=== PATIENT | female | born 1980 | race Caucasian/White ===

== ENCOUNTER 2018-01-12 08:40 | Outpatient (REF) | payer OTHER, SELFPAY ==
--- NOTE | 2018-01-12 08:30 | PAPFT_PTH ---
PATIENT: Molly Esparza LOC: [facility] U#:[id number] AGE/SX: 37/F ROOM: RE01/12/[address]: MURALI Vaca : 1980 BED: DIS: 01/12/2018 SPEC #: [id number] RECD: 01/12/18 13:09 STATUS: RUMA RESonya #: [id number] LORY: 01/12/18 08:[address]: Parul Acevedo DEPT: [facility] Cytology RECD BY: Lilliana Ventura ENTERED: 01/12/18 13:09 SP TYPE: PAPFT OTHR DR: Peter Bernard MD Tissues: 1 - CX/ENDOCX FOR PAP SMEARS Procedures: PAP THIN PREP/UVM Screening HPV DNA PROBE Comments: [id number]
== END 2018-01-12 09:00 ==
LOC: LBN 08:40
PROVIDERS: PCP Family Medicine; Visit Provider Nurse Practitioner Family
DX: Z12.4 Encounter for screening for malignant neoplasm of cervix (principal); Z11.51 Encounter for screening for human papillomavirus (HPV)
CPT/HCPCS: 88142; 87624

== ENCOUNTER 2018-02-16 01:49 | Outpatient (CLI) | payer OTHER, SELFPAY ==
[2018-02-16 13:40] LABS: TSH (W/Ref FT4) 2.42 uIU/mL (0.358-3.74)
== END 2018-02-16 02:09 ==
PROVIDERS: PCP Family Medicine; Visit Provider Nurse Practitioner Family
DX: R53.83 Other fatigue (principal)
CPT/HCPCS: 36415; 84443

== ENCOUNTER 2018-04-03 00:27 | Outpatient (CLI) | payer OTHER, SELFPAY ==
--- NOTE | 2018-04-03 12:00 | DI.US_ITS ---
SYMPTOMS/DIAGNOSIS: PAIN AND SWELLING IN LEFT LEG, M79.605 LEFT LOWER EXTREMITY ULTRASOUND: The femoral and popliteal veins and visualized portions of the calf veins as well as saphenous vein are freely compressible. No thrombus is visible. No Castano's cyst or hematoma is seen. IMPRESSION: Negative left lower extremity ultrasound. No evidence of deep venous thrombosis or superficial thrombophlebitis.
== END 2018-04-03 00:47 ==
PROVIDERS: PCP Family Medicine; Visit Provider Family Medicine
DX: M79.605 Pain in left leg (principal); R22.42 Localized swelling, mass and lump, left lower limb
CPT/HCPCS: 93971

== ENCOUNTER 2018-05-28 02:19 | Outpatient (CLI) | payer OTHER, SELFPAY ==
[2018-05-28 07:52] LABS: HCT 41.1 % (36.0-46.0); HGB 13.8 g/dL (12.0-15.5); Mean Corp. HGB Concentration 33.6 g/dL (32.0-36.0); Mean Corpuscular Hemoglobin 29.7 pg (27.0-33.0); Mean Corpuscular Volume 88.4 fL (80-95); Mean Platelet Volume 10.1 fL (8.0-11.0); Platelet Count 220 x1000/uL (130-400); RBC 4.65 m/cumm (4.00-5.20); RBC Distribution Width 12.8 % (11.7-14.6); White Blood Cell Count 5.65 k/cumm (4.4-10.8)
[2018-05-28 09:28] LABS: ALT 21 U/L (12-78); AST 14 U/L (15-37); Albumin 4.1 g/dL (3.4-5.0); Alkaline Phosphatase 66 U/L (46-116); Anion Gap 6.1 mmol/L (3-11); BUN 12 mg/dL (7-18); Bilirubin, Total 0.8 mg/dL (0.2-1.0); CO2 28.9 mmol/L (21.0-32.0); CREATININE 0.82 mg/dL (0.55-1.02); Calcium 9.1 mg/dL (8.5-10.1); Chloride 105 mmol/L (98-107); Glucose 90 mg/dL (70-100); Potassium 4.6 mmol/L (3.5-5.1); Sodium 140 mmol/L (136-145); Total Protein 7.3 g/dL (6.4-8.2); Vitamin B12 436 pg/mL (193-986)
== END 2018-05-28 02:39 ==
PROVIDERS: PCP Family Medicine; Visit Provider Family Medicine
DX: R20.2 Paresthesia of skin (principal)
CPT/HCPCS: 36415; 80053; 85027; 82607

== ENCOUNTER 2018-10-04 18:14 | Emergency (ER) | payer OTHER, SELFPAY ==
--- NOTE | 2018-10-04 18:25 | ED.GENADUL_ITS ---
Discharge Plan Disposition Patient Disposition: HOME Condition: Good Discharge Details Chief Complaint: Sorethroat Clinical Impression: Acute sore throat Primary Care Provider: Peter Bernard ED Provider: Diego Farrar Home Meds and New Rx's Prescriptions: New amoxicillin 500 mg capsule 1,000 mg PO DAILY 7 Days Qty: 14 RF: 0 Continued lorazepam 0.5 mg tablet 0.5 mg PO Q6H PRN PRN (Reason: anxiety) Qty: 30 RF: 0 Discontinued amoxicillin-pot clavulanate 500-125 mg tablet 1 tab PO TID Qty: 30 RF: 0 meclizine 12.5 mg tablet 12.5 mg PO TID PRN (Reason: dizziness) Qty: 30 RF: 3 Discharge Instructions Instructions: Pharyngitis (ED) Additional Instructions: At this time you have notable pharyngitis. If your cultures come back positive he will be contacted. Please take the antibiotic if it is positive. Please take Tylenol Motrin as needed for pain and fever. If you notice any worsening of your symptoms, or any new symptoms such as vomiting, diarrhea, fever, chills, shortness of breath, chest pain, numbness, weakness, or fainting , please return immediately to the emergency department for reevaluation. Please follow up with your primary care provider as soon as possible for reassessment and reevaluation. As always, it was a pleasure participating in your medical care today. 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 She has some mild fatigue with it, no evidence of significant splenomegaly, inconsistent with mono. Bedside strep test is negative, however historically the patient has been strep [id number] negative, but culture positive. With no signs of peritonsillar abscess or other significant abnormality feel the patient be safely discharged home. Due to her historical component we will give a prescription for antibiotics, but recommend holding off until the cultures come back. We discussed the importance of Tylenol Motrin close follow-up. Patient does have mild fever here, we offered Tylenol Motrin however she would like to take some at home. I have extensively reviewed the treatment plan and discharge instructions with the patient. I have addressed all patient concerns at this time. The patient was made aware of what symptoms to monitor for that would warrant a return to the emergency department. Discussed the plan with the patient, they demonstrate verbal understanding and agreement with our assessment and plan at this time. HPI General Date/Time Provider Initiated Documentation: 10/04/18 18:18 . 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 Patient states that for the last 24 hours she has had mild fatigue, notable sore throat. She states that it feels consistent with her previous episodes of sore throat. Often times she will be strep negative on [id number] but then be strep positive on culture. She denies any headache, neck pain, fever, chills, chest pain, shortness of breath. She denies any nausea vomiting or diarrhea. She did recently get back from a trip to [facility], but denies any other significant travel or other complaints. She denies any IV or illicit drug use, pertinent family history, or recent surgeries. Related Data Home Medications Medication Instructions Recorded Confirmed lorazepam 0.5 mg tablet 0.5 mg PO Q6H PRN PRN #30 tab 12/11/17 06/09/18 amoxicillin 1,000 mg PO DAILY 7 Days #14 cap 10/04/18 Previous Rx's Medication Instructions Recorded lorazepam 0.5 mg tablet 0.5 mg PO Q6H PRN PRN #30 tab 12/11/17 amoxicillin 1,000 mg PO DAILY 7 Days #14 cap 10/04/18 Allergies Allergy/AdvReac Type Severity Reaction Status Date / Time doxycycline Allergy Mild Verified 10/04/18 18:37 erythromycin base AdvReac Unknown Verified 10/04/18 18:37 Review of Systems Review of Systems All systems reviewed & are unremarkable except as noted in HPI and below PFSH Medical History (Updated 06/08/18 @ 19:55 by Peter Bernard MD) Esophageal reflux (Chronic) Family history of colon cancer (Chronic 04/12/13) IUD surveillance (Chronic 02/01/11) Obesity (Chronic) Surgical History section (~2003) Ligation of fallopian tube (Inactive) Social History (Updated 01/08/18 @ 09:03 by Yojana Phelps LPN) Smoking/Tobacco Use Status: Never Alcohol Intake: never Drug use: Never Substance use type: does not use Seatbelt use: always Do you feel safe at home: Yes Do you feel safe in your relationship?: Yes Female Reproductive History Menstrual control method: progestin IUCD (No menses with IUD) Exam Narrative Exam Narrative: 1.Const: Well-nourished, Well-developed, appearing stated age 2.Eyes: PERRL, no conjunctival injection, and symmetrical lids. 3.ENT: Atraumatic external nose and ears. Moist MM. Neck: Symmetric, trachea midline, No thyromegaly. Notable erythema in the posterior oropharynx. No significant tonsillar exudate, tonsils are not overly enlarged, but do appear raw and notably agitate. Patient demonstrates good movement of cervical neck. There is no nuchal rigidity, no nuchal tenderness. Patient is able to flex the neck without any difficulty or significant pain. Negative Kernig's and Brudzinski sign. 4.CVS: +S1/S2, No murmurs or gallops. Peripheral pulses 2+ and equal in all extremities. Brisk capillary refill in all extremities. 5.RESP: Unlabored respiratory effort. Clear to auscultation bilaterally. No wheezes rales or rhonchi 6.GI: Soft, Nontender/Nondistended, No hepatosplenomegaly. No guarding or rebound. 7.MSK: Normocephalic/Atraumatic, Extremities w/o deformity or ttp No cyanosis or clubbing, Normal movement of all extremities 8.Skin: Warm, Dry. No rashes or lesions. 9.Neuro: crushed stone grader II-XII grossly intact. Sensation grossly intact, no focal neurologic deficits. 10.Psych: (AAO) x3. Appropriate mood and affect
[2018-10-04 18:32] VITALS: BP 141/98; PULSE 116; RESP 18; TEMP 38.4; O2SAT 100
[2018-10-04] MEDS: Amoxicillin 500 MG CAP 1000 MG PO (18:46)
== END 2018-10-04 18:50 | disposition home or self-care (01) ==
PROVIDERS: Emergency Provider Student in an Organized Health Care Education/Training Program; PCP Family Medicine
DX: J02.9 Acute pharyngitis, unspecified (principal); R50.9 Fever, unspecified
CPT/HCPCS: 87880; 99283; 87081

== ENCOUNTER 2019-03-04 00:35 | Outpatient (CLI) | payer OTHER, SELFPAY ==
--- NOTE | 2019-03-04 08:16 | DI.MAMMO_ITS ---
EXAM: MG MAMMO SCREENING CLINICAL HISTORY: screening. TECHNIQUE: Full field digital CC and MLO mammographic images were obtained with 3D tomosynthesis and utilizing computer aided detection (CAD). COMPARISON: 2017. FINDINGS: Breast Density - Category C - Heterogeneously dense Masses/Architectural Distortion: None seen. Microcalcifications: No suspicious pleomorphic-type calcifications are seen. Skin Thickening/Nipple Retraction: None. Axilla: Unremarkable. IMPRESSION: 1. BI-RADS category 1, negative. No significant interval change with no specific features of maligna ncy noted. 2. Unless there is more urgent need, screening mammography is recommended, as per [employer] guidelines. A negative radiographic report should not delay biopsy if a dominant or clinically suspicious mass is present. Up to ten percent of cancers are not identified on mammography. A negative report may reinforce clinical impression. Adenosis and dense breasts may obscure an underlying neoplasm. False positive reports average 6 to 10%. Patient will receive a letter notifying them of these results.
== END 2019-03-04 00:55 ==
PROVIDERS: PCP Family Medicine; Visit Provider Nurse Practitioner Family
DX: Z12.31 Encounter for screening mammogram for malignant neoplasm of breast (principal)
CPT/HCPCS: 77063; 77067

== ENCOUNTER 2020-03-13 00:27 | Outpatient (CLI) | payer OTHER, SELFPAY ==
--- NOTE | 2020-03-13 07:30 | DI.MAMMO_ITS ---
EXAM: MG MAMMO SCREENING CLINICAL HISTORY: screening TECHNIQUE: Bilateral full field digital CC and MLO mammographic images were obtained with 3D tomosyn thesis and utilizing computer aided detection (CAD). COMPARISON: Available for comparison. FINDINGS: Masses/Architectural Distortion: There is a new ovoid opacity in the medial aspect of the left breast on the craniocaudad view 13 cm from the nipple. It appears fairly well circumscribed on the tomogra phic images. Microcalcifications: No suspicious pleomorphic-type are seen. Skin Thickening/Nipple Retraction: None. IMPRESSION: 1. New ovoid opacity in the medial aspect of the left breast on the CC view. 2. Spot compression views and a left breast ultrasound are recommended for further evaluation. BI-RADS Category 0 - Assessment Incomplete: Need additional imaging evaluation Breast Density - Category C - Heterogeneously dense Breast density category C or D implies that the patient has dense breast tissue. Dense breast tissue is very common and is not abnormal but dense breast tissue can make it harder to find cancer on a ma mmogram. Also, dense breast tissue may increase their breast cancer risk. This information about the result of the mammogram report was provided to the patient to raise their awareness. Use this report when you speak with the patient about their risks for breast cancer, which includes their family hist ory. At that time, you may recommend for more screening tests (Ultrasound or MRI) as they might be us eful based on their risk. A negative radiographic report should not delay biopsy if a dominant or clinically suspicious mass is present. Up to ten percent of cancers are not identified on mammography. A negative report may reinforce clinical impression. Adenosis and dense breasts may obscure an underlying neoplasm. False positive reports average 6 to 10%. Patient will receive a letter notifying them of these results.
== END 2020-03-13 00:47 ==
PROVIDERS: PCP Nurse Practitioner; Visit Provider Nurse Practitioner Family
DX: Z12.31 Encounter for screening mammogram for malignant neoplasm of breast (principal); R92.8 Other abnormal and inconclusive findings on diagnostic imaging of breast
CPT/HCPCS: 77063; 77067

== ENCOUNTER 2020-03-16 00:17 | Outpatient (CLI) | payer OTHER, SELFPAY ==
--- NOTE | 2020-03-16 | DI.MAMMO_ITS ---
EXAM: MG MAMMO SCREEN CALL BACK UNI and U/S breast LT limited CLINICAL HISTORY: F/U MAMMO,NEW OVOID OPACITY LT BRESAT. TECHNIQUE: Craniocaudal and mediolateral oblique Full Field Digital Mammography views of the left br east with Computer Aided Diagnosis followed by Tomosynthesis and left breast ultrasound. COMPARISON: Priors available for comparison. FINDINGS: Mammography/Tomosynthesis: Masses/Architectural Distortion: The well-circumscribed nodule persists on the additional views and h as a lobulated contour. It measures 1.1 cm. No associated calcifications or architectural distortio n is noted. Microcalcifictions: No suspicious pleomorphic-type are seen. Skin Thickening/Nipple Retraction: None. Left breast US: The lower inner and upper inner quadrants of the left breast were evaluated sonograph ically. Echotexture: Normal appearance of the glandular tissue. Shadowing: No suspicious foci. Cyst: None. Solid lesions: There is a 1.5 x 0.5 x 1.1 cm ovoid hypoechoic nodule at the 12 o'clock position of th e left breast 10 cm from the nipple. It has an echogenic notch. Sonographically the finding is most suggestive of a lymph node. Ductal dilation: None. IMPRESSION: 1. No evidence of malignancy is noted. Sonographically findings are suggestive of a lymph node. No s uspicious sonographic findings are seen. 2. A six-month follow-up left mammogram is requested for re-evaluation. 3. The findings were discussed with the patient on the date of the examination. BI-RADS Category 3 - 6 month - Probably Benign Finding: Recommend follow-up mammography in 6 months Breast Density - Category C - Heterogeneously dense The mammogram demonstrates the patient's breast tissue is dense. Dense breast tissue is very common a nd is not abnormal but dense breast tissue can make it harder to find cancer on a mammogram. Also, de nse breast tissue may increase their breast cancer risk. [facility] was provided to the patient to raise their awareness. Use this report when you speak wi th the patient about their risks for breast cancer, which includes their family history. At that time , you may recommend for more screening tests (Ultrasound or MRI) as they might be useful based on the ir risk. A negative radiographic report should not delay biopsy if a dominant or clinically suspicious mass is present. Up to ten percent of cancers are not identified on mammography. A negative report may reinforce clinical impression. Adenosis and dense breasts may obscure an underlying neoplasm. False positive reports average 6 to 10%. Patient will receive a letter notifying them of these results.
== END 2020-03-16 00:37 ==
PROVIDERS: PCP Nurse Practitioner; Visit Provider Nurse Practitioner Family
DX: R92.8 Other abnormal and inconclusive findings on diagnostic imaging of breast (principal); N63.25 Unspecified lump in the left breast, overlapping quadrants
CPT/HCPCS: 76642; 77063; 77067

== ENCOUNTER 2020-09-19 02:08 | Outpatient (CLI) | payer BC, SELFPAY ==
--- NOTE | 2020-09-19 09:10 | DI.MAMMO_ITS ---
Exam(s) MAMMO DIAGNOSTIC UNI EXAM: MAMMO DIAGNOSTIC UNI CLINICAL HISTORY: 6 mo f/u left breast mammogram, R92.8 TECHNIQUE: Mammograms were interpreted according to the usual protocol including computer analysis w ith CAD system, tomosynthesis and C-view imaging. COMPARISON: FINDINGS: Left breast mammogram was performed to re-evaluate area of asymmetric density identified on prior [facility] mogram of February 2021. No mass or clumped microcalcification identified in the left breast. No change in appearance compari son with prior study. IMPRESSION: No specific evidence of malignancy at this time. I would suggest that routine screening examinations resume with a bilateral mammogram in 6 months. BI-RADS Category 3 - 6 month - Probably Benign Finding: Recommend follow-up mammography in 6 months Breast Density - Category C - Heterogeneously dense
== END 2020-09-19 02:28 ==
PROVIDERS: PCP Nurse Practitioner; Visit Provider Nurse Practitioner Family
DX: R92.8 Other abnormal and inconclusive findings on diagnostic imaging of breast (principal); R92.2 Inconclusive mammogram
CPT/HCPCS: 77061; 77065; G0279

== ENCOUNTER 2021-03-22 11:46 | Outpatient (REF) | payer BC, SELFPAY ==
--- NOTE | 2021-03-22 09:00 | PAPFT_PTH ---
PATIENT: Molly Esparza LOC: [facility] U#:[id number] AGE/SX: 40/F ROOM: RE03/22/[address]: MURALI Vaca : 1980 BED: DIS: 03/22/2021 SPEC #: [id number] RECD: 03/22/21 13:05 STATUS: RUMA REQ #: [id number] LORY: 03/22/21 09:[address]: Parul Acevedo DEPT: [facility] Cytology RECD BY: Lilliana Ventura ENTERED: 03/22/21 13:05 SP TYPE: PAPFT OTHR DR: Mary Ellen Sanchez, PhD ENTRY LEVEL FINANCE Tissues: 1 - CX/ENDOCX FOR PAP SMEARS Procedures: PAP THIN PREP/UVM Screening HPV DNA PROBE Comments: [id number]
== END 2021-03-22 11:47 | disposition home or self-care (01) ==
LOC: LBN 11:46
PROVIDERS: PCP Nurse Practitioner; Visit Provider Nurse Practitioner Family
DX: Z12.4 Encounter for screening for malignant neoplasm of cervix (principal); Z11.51 Encounter for screening for human papillomavirus (HPV)
CPT/HCPCS: 88142; 87624

== ENCOUNTER 2021-03-27 00:56 | Outpatient (CLI) | payer BC, SELFPAY ==
--- NOTE | 2021-03-27 06:30 | DI.MAMMO_ITS ---
Exam(s) MAMMO SCREENING EXAM: MAMMO SCREENING CLINICAL HISTORY: screening,z12.39 TECHNIQUE: Bilateral full field digital CC and MLO mammographic images were obtained with 3D tomosyn thesis and utilizing computer aided detection (CAD). COMPARISON: Available for comparison. FINDINGS: Masses/Architectural Distortion: None seen. Microcalcifications: No suspicious pleomorphic-type are seen. Skin Thickening/Nipple Retraction: None. IMPRESSION: 1. No significant interval change with no specific features of malignancy noted. 2. Unless there is more urgent need, screening mammography is recommended, as per [employer] guidelines. BI-RADS Category 1 - Negative Breast Density - Category C - Heterogeneously dense Breast density category C or D implies that the patient has dense breast tissue. Dense breast tissue is very common and is not abnormal but dense breast tissue can make it harder to find cancer on a ma mmogram. Also, dense breast tissue may increase their breast cancer risk. This information about the result of the mammogram report was provided to the patient to raise their awareness. Use this report when you speak with the patient about their risks for breast cancer, which includes their family hist ory. At that time, you may recommend for more screening tests (Ultrasound or MRI) as they might be us eful based on their risk. A negative radiographic report should not delay biopsy if a dominant or clinically suspicious mass is present. Up to ten percent of cancers are not identified on mammography. A negative report may reinforce clinical impression. Adenosis and dense breasts may obscure an underlying neoplasm. False positive reports average 6 to 10%. Patient will receive a letter notifying them of these results.
== END 2021-03-27 01:16 ==
PROVIDERS: PCP Nurse Practitioner; Visit Provider Nurse Practitioner Family
DX: Z12.31 Encounter for screening mammogram for malignant neoplasm of breast (principal)
CPT/HCPCS: 77063; 77067

== ENCOUNTER 2021-10-25 06:05 | Day surgery (SDC) | payer BC, SELFPAY ==
--- NOTE | 2021-10-24 21:39 | W.PM.DSUDISC ---
Discharge Plan Disposition Patient Disposition: HOME Condition: Good Discharge Details Attending Provider: Marko Arce Primary Care Provider: Mary Ellen Sanchez Home Meds and New Rx's Prescriptions: Continued multivitamin [Daily Multi-Vitamin] Tablet 1 tab PO DAILY meclizine 12.5 mg tablet 12.5 mg PO PRN trazodone 50 mg tablet 50 mg PO QHS PRN (Reason: sleep) Qty: 30 0RF Mirena 20 mcg/24 hours (7 yrs) 52 mg intrauterine device 1 device intrauterine ONCE Rx Instructions: as a single dose lisinopril 10 mg tablet 10 mg PO DAILY Qty: 90 4RF Discontinued bisacodyl [Dulcolax (bisacodyl)] 5 mg tablet,delayed release (DR/EC) 5 mg PO ONCE Qty: 4 0RF Rx Instructions: Take according to provider's instructions for colonoscopy prep. polyethylene glycol 3350 17 gram/dose powder 17 g PO ONCE Qty: 238 0RF Rx Instructions: To be taken as directed by prescriber's office for colonoscopy prep. Discharge Instructions Instructions: Colonoscopy (DC) Additional Instructions: 1. If tolerated, consume a soft, low fiber diet for 1-2 days. 2[address] Do not drive, drink alcohol, operate machinery, make critical decisions, or do activities that require coordination or balance for 24 hours. 3. Because air was put into your colon during the procedure, expelling air from your rectum (passing gas or farting) is normal. 4. You may not have a bowel movement for 1-3 days because of the colonoscopy prep. This is normal. 5. Go directly to the emergency room if you notice any of the following: Develop chills (warm to touch), or if you have a thermometer and your temperature is above 101 Difficulty breathing or difficultly swallowing Persistent vomiting Severe abdominal pain, other than gas cramps Severe chest pain Black, tarry stools Any bleeding ? exceeding one tablespoon 6. Call your physician if the site where your intravenous was started becomes red, swollen, painful, and warm to touch. 7. Your physician has reviewed your pre-procedure medications. Please continue to take those medications as previously ordered. You will be given specific information/education regarding any changes to your medications before leaving. Referrals: Mary Ellen Sanchez, ROTOR CASTING MACHINE OPERATOR [Primary Care Provider] - Activity:: Activity as Tolerated Diet:: As Tolerated Discharge Orders Discharge Orders: Discharge Order (Routine); Ordered 10/25/21 Ordered By: Marko Arce Discharge Data Discharge Comment: ok to d/c when SDU criteria met
--- NOTE | 2021-10-24 21:42 | W.COLOREPORT ---
Colonoscopy Report Date of procedure: 10/25/21 Pre-op diagnosis general: screening colonoscopy Post-op diagnosis procedure note: other (polyp at 45 cm) Surgeon: Marko Arce Anesthesia Type: General:No Airway Estimated blood loss (mL): 10 Pathology: other (polyp) Complications: None Disposition: same day Prep: Miralax/Dulcolax Procedure Start Time: 07:31 Procedure End Time: 07:56 Retraction Time: 16 Procedure Description: After the induction of monitored anesthetic care, and with the patient in left lateral decubitus position, I began by performing an external anorectal exam.? Perineum and skin were normal, as was the anal verge.? There was no evidence of external hemorrhoids.? Next, I performed a digital rectal exam.? I did amie appreciate any abnormal findings.? Next, I advanced a colonoscope into the rectal vault.? I performed retroflexion.? I did not see signs of pathologic internal hemorrhoids.? Using insufflation, I then advanced the colonoscope beyond the rectal folds and into the sigmoid colon before advancing towards the cecum.? The quality of the prep was adequate.? The scope was noted to be in the cecum by identification of the ileocecal valve and appendiceal orifice.? I then began withdrawing the colonoscope using repeated irrigation as necessary for full evaluation of the colonic mucosa. Around 45 cm from the anal verge I identified a 1.5 cm polyp. ?It appeared flat in character. ?I was able to remove this with a snare and biopst forcept. ?I examined the site, and there was minimal bleeding. ?Once this was completed, I continued to withdraw the scope and examine the remainder of the colonic mucosa.?Once the scope was withdrawn to the level of the rectum, great care was taken to examine portions of the rectal folds.? Finally, the scope was withdrawn and the patient was brought to the same-day surgery recovery unit as the anesthetic wore off. ?The findings and instructions were shared with the patient prior to discharge.
[2021-10-25 06:24] VITALS: BP 125/87; PULSE 91; RESP 18; TEMP 36.2; O2SAT 99
[2021-10-25] MEDS: Lactated Ringers 1,000 ML 80 ML IV (06:38)
--- NOTE | 2021-10-25 06:56 | W.ANESPRE ---
General Info Date of Service Date Performed: 10/25/21 Height: 5 ft 7 in Weight: 115.5 kg Body Mass Index (BMI): 39.9 Surgical Procedure: Operation Date: 10/25/21 07:35 Proposed Procedure Side Surgeon p Colonoscopy Marko Arce MD Meds Allergies and Home Medications Allergies Allergy/AdvReac Type Severity Reaction Status Date / Time doxycycline Allergy Mild Pt unsure Verified 10/25/21 06:28 of reaction erythromycin base AdvReac Intermediate upset Verified 10/25/21 06:28 stomach Home Medication Medication Instructions Recorded meclizine 12.5 mg tablet 12.5 mg PO PRN 11/26/18 trazodone 50 mg tablet 50 mg PO QHS PRN sleep #30 tabs 12/26/20 multivitamin (Daily Multi-Vitamin 1 tab PO DAILY 01/23/21 tablet) lisinopril 10 mg tablet 10 mg PO DAILY #90 tabs 04/03/21 levonorgestrel 20 mcg/24 hours (7 1 device intrauterine ONCE 07/09/21 yrs) 52 mg intrauterine device (Mirena) Current Visit Medications: Current Medications Generic Name Dose Route Start Last Admin Trade Name Freq PRN Reason Stop Dose Admin Ringer's Solution 1,000 mls @ 80 mls/hr 10/25/21 06:00 10/25/21 06:38 IV 11/23/21 23:59 80 mls/hr INFUSION RHIANNA Administration IV Miscellaneous Supplies 1 each 10/25/21 06:00 Iv Access IV 11/23/21 23:59 DIRECTED RHIANNA Sodium Chloride 0 ml 10/25/21 06:00 Normal Saline Flush 10 Ml Syr IV 11/23/21 23:59 PRN PRN Sodium Chloride 0 ml 10/25/21 06:00 Normal Saline 10 Ml Vial IJ 11/23/21 23:59 DIRECTED PRN Sterile Water 0 ml 10/25/21 06:00 Water,Injection,Sterile 10 Ml Vial IJ 11/23/21 23:59 DIRECTED PRN PFSH Active Problems Active Problems: Problem Status Onset Code Family history of colon cancer 04/12/13 Z80.0 Obesity E66.9 Anxiety F41.9 Numbness R20.0 Medical History Medical History 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 Esophageal reflux Hypertension IUD (intrauterine device) in place IUD surveillance (02/01/11) most recent Mirena IUD inserted 06/2021. Lateral epicondylitis of right elbow Plantar fasciitis of right foot Vertigo Medical History Comments:: patient reports her sister had an anaphylactic reaction to a medication when receiving anesthesia here at [facility]. Neither the patient nor her sister know which medication caused the reaction however provided a list of the medications that were involved to include propofol, fentanyl, Versed, Decadron, Zofran and rocuronium. Patient is concerned that she has not been exposed to these medications in the past and is concerned for possible reaction as well. Task in Mantis Deposition reviewed by by BB. Surgical History Surgical History section (~2003) Tobacco Smoking/Tobacco Use Status: Never Passive smoking exposure: Yes Second hand exposure: Yes Alcohol Alcohol Intake: never Substance Use Substance use: Never Substance use type: does not use Vital Signs and Lab Results Vital Signs Most Recent Vital Signs in EMR: Most Recent Vital Signs Temp Pulse Resp BP Pulse Ox 36.2 C L 91 H 18 125/87 99 10/25/21 06:24 10/25/21 06:24 10/25/21 06:24 10/25/21 06:24 10/25/21 06:24 Point of Care Results Point of Care Results: POC- Test(urine) Negative 10/25/21 06:35 Lab Results Blood Type / Crossmatch: No Data to Display Complete Blood Count: No Data to Display Complete Metabolic Panel: No Data to Display Liver Function Panel: No Data to Display Coagulation Panel: No Data to Display Cardiac Panel: No Data to Display Arterial Blood Gas: No Data to Display Venous Blood Gas: No Data to Display Pancreas Panel: No Data to Display Thyroid Panel: No Data to Display Infectious Disease: No Data to Display Blood Cultures: No Data to Display Toxicology Panel: No Data to Display Panel: No Data to Display Anesthesia Assessment and Plan Anesthesia History Personal History: No History of Anesthesia Complications Family History: Other Exercise Tolerance Exercise Tolerance: Metabolic Equivalents>4 Pertinent Negatives Pertinent Negatives: No Symptoms of GERD Cardiac & Pulmonary Exam Cardiac Exam: Normal S1/S2 Heart Sounds Pulmonary Exam: Clear Bilateral Breath Sounds Implantable Cardiac Device Does patient have a Pacemaker or an ICD?: No Airway Exam Known Difficult Airway: No Mallampati Class: 2 Mouth Opening: Normal (> 3cm) Thyromental Distance: Greater than 3 cm Neck Range of Motion: Full ROM Neck Circumference: Normal Teeth Condition: Normal Dentition ASA Classification ASA Score: ASA 2 Emergency Case?: No NPO Status NPO Status: NPO Clears >2 hours, Solids >8 hours Status Status: Negative HCG Anesthesia Plan Resuscitation Status: Full Code Anesthesia Technique: General Anesthesia Airway Planned: Natural Airway Monitors Used: Standard Monitors
--- NOTE | 2021-10-25 07:16 | HPE_ITS ---
Date of service: 10/25/21 Time of Service: 07:16 Assessment and Plan Assessment and plan (1) Family history of colon cancer: Status: Chronic Assessment and plan: Plan for screening colonoscopy today. History of Present Illness Narrative: Jessica is here for screening colonoscopy today. She was last seen in the office in August. Since then, there have been no significant interval changes. She has been tolerating a regular diet with normal bowel function. She denies any melena, hematochezia, or other signs or symptoms concerning for colon cancers. She does confirm that her mother has a personal history of colorectal cancer. Review of Systems Constitutional Constitutional: Reports as per HPI Eyes Eyes: Reports system reviewed and no additional complaints, except as documented ENT Ears, Nose, Mouth, and Throat: Denies abnormal hearing Cardiovascular Cardiovascular: Denies chest pain, Denies irregular heart rhythm and Denies dyspnea Respiratory Respiratory: Denies chest congestion, Denies cough and Denies dyspnea Gastrointestinal Gastrointestinal: Denies abdominal pain Neurologic Neurologic: Reports system reviewed and no additional complaints, except as documented and Denies abnormal hearing Hematologic/Lymphatic Hematologic/Lymphatic: Denies easy bleeding and Denies easy bruising Allergic/Immunologic Allergic/Immunologic: Denies GI upset with certain foods PFSH All Active Problems Family history of colon cancer (Chronic 04/12/13) mother with stage 3 Obesity (Chronic) Anxiety (Chronic) Numbness (Acute) 09/12-left anterior thigh, intermittent Medical History 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 Esophageal reflux Hypertension IUD (intrauterine device) in place IUD surveillance (02/01/11) most recent Mirena IUD inserted 06/2021. Lateral epicondylitis of right elbow Plantar fasciitis of right foot Vertigo Surgical History section (~2003) Family History Mother Hepatitis C Essential hypertension Colon cancer Hypertension Father No problems noted. Sister Essential hypertension Hyperlipidemia Maternal Grandfather Essential hypertension Hyperlipidemia Paternal Grandfather No problems noted. Maternal Grandmother Essential hypertension Hyperlipidemia Stroke Colon cancer Cancer Paternal Grandmother No problems noted. Daughter No problems noted. Social History Smoking/Tobacco Use Status: Never Second Hand Exposure: Yes Smoking risk assessment performed?: Yes Alcohol Intake: never Drug use: Never Substance use type: does not use Caregiver/Support person: No Household members: spouse and children Housing: house Number of Children: 1 Communication Needs: None Do you need help understanding health information?: Never current occupation: [employer]. Pets and animals: Yes Pets and animals: cat(s) and dog(s) Sexually active: Yes Do you think of yourself as: straight/heterosexual Current gender identity: female What is your relationship status?: How often do you talk on the phone with friends or family?: three or more times per week How often do you get together with friends or relatives?: twice per week How often do you attend yarsanism or cheondoism services?: decline to answer Do you belong to any clubs or organized social groups?: decline to answer Panel score (0-1 are the most socially isolated patients): 2 Duration: 15-30 minutes/day Frequency: 1-2 times per week Geovanna/Scientologist: None Seatbelt use: always Helmet use: Yes Helmet use: sometimes Drive intox or ride w/intox milk wagon driver: No Do you feel safe at home: Yes Do you feel safe in your relationship?: Yes Female Reproductive History Menstrual control method: progestin IUCD Meds Allergies and Home Medications Allergies Allergy/AdvReac Type Severity Reaction Status Date / Time doxycycline Allergy Mild Pt unsure Verified 10/25/21 06:28 of reaction erythromycin base AdvReac Intermediate upset Verified 10/25/21 06:28 stomach Home Medications Medication Instructions Recorded Confirmed Type meclizine 12.5 mg tablet 12.5 mg PO PRN 11/26/18 10/25/21 History trazodone 50 mg tablet 50 mg PO QHS PRN sleep #30 tabs 12/26/20 10/25/21 Rx multivitamin (Daily Multi-Vitamin 1 tab PO DAILY 01/23/21 10/25/21 History tablet) lisinopril 10 mg tablet 10 mg PO DAILY #90 tabs 04/03/21 10/25/21 Rx levonorgestrel 20 mcg/24 hours (7 1 device intrauterine ONCE 07/09/21 10/25/21 History yrs) 52 mg intrauterine device (Mirena) Exam Const General: cooperative and healthy appearing HENMT Head: normal to inspection Neck Neck: normal visual inspection and no lymphadenopathy Resp Effort & Inspection: normal respiratory effort and able to speak in complete sentences Auscultation: clear to auscultation bilaterally Cardio Jugular venous pressure: no JVD Rate: regular rate Rhythm: regular rhythm Heart Sounds: S1 normal and S2 normal GI Inspection: normal to inspection Palpation: not firm and no guarding Auscultation: normal bowel sounds Skin General skin exam: no rashes or lesions noted Neuro General: patient alert, patient awake and patient oriented x3 Extrem Right upper extremity: no edema Left upper extremity: no edema Right lower extremity: no edema Left lower extremity: no edema Psych Appearance: grossly normal Results Last Vital Signs Temp 97.2 F L 10/25/21 06:24 Pulse 91 H 10/25/21 06:24 Resp 18 10/25/21 06:24 BP 125/87 10/25/21 06:24 Pulse Ox 99 10/25/21 06:24
[2021-10-25 07:22] VITALS: BMI 39.9
[2021-10-25 08:00] VITALS: BP 125/76; PULSE 82; RESP 16; TEMP 36.6; O2SAT 97
--- NOTE | 2021-10-25 08:00 | BOWEL_PTH ---
PATIENT: Molly Esparza LOC: [facility] U#:[id number] AGE/SX: 41/F ROOM: RE10/25/[address]: Marko Arce MD : 1980 BED: DIS: 10/25/2021 SPEC #: [id number] RECD: 10/25/21 09:48 STATUS: RUMA REQ #: [id number] LORY: 10/25/21 08:[address]: Marko Arce DEPT: Surgical Specimen RECD BY: Tonie Navarro ENTERED: 10/25/21 09:49 SP TYPE: Bowel OTHR DR: Mary Ellen Sanchez, PhD VESSEL SLAGMAN Tissues: 1 - BIOPSY BOWEL Procedures: GROSS AND MICRO LEVEL 4 Comments: [id number]
[2021-10-25 08:30] VITALS: BP 120/85; PULSE 73; RESP 16; TEMP 36.6; O2SAT 99
--- NOTE | 2021-10-25 08:48 | W.ANESPOSTOP ---
Postoperative Evaluation Date, Time and Location Date Performed: 10/25/21 Time Performed: 08:30 Patient Location: Day Surgery Unit Vital Signs Most Recent Imported Vital Signs: Most Recent Vital Signs Temp Pulse Resp BP Pulse Ox 36.6 C 82 16 125/76 97 10/25/21 08:00 10/25/21 08:00 10/25/21 08:00 10/25/21 08:00 10/25/21 08:00 Pain Score Most Recent Pain Score: Most Recent Pain Score Pain Level 0 10/25/21 08:00 Assessment Mental Status: Awake (Alert & Oriented to Patient Baseline) Airway and Respiratory Function: Patent airway with normal (patient baseline) respiratory exam Cardiovascular Function: Hemodynamically Stable Hydration Status: Adequately Hydrated Nausea & Vomiting: No Nausea or Vomiting Pain: Pt. Denies Any Pain Peripheral Nerve Block: Patient did not receive a nerve block
== END 2021-10-25 06:06 | disposition home or self-care (01) ==
PROVIDERS: PCP Nurse Practitioner; Visit Provider Surgery
PROC: 0DJD8ZZ Inspection of Lower Intestinal Tract, Via Natural or Artificial Opening Endoscopic (ICD-10-PCS; CPT 45378; principal; 2021-10-25 07:30)
DX: Z12.11 Encounter for screening for malignant neoplasm of colon (principal); K63.5 Polyp of colon; Z80.0 Family history of malignant neoplasm of digestive organs
CPT/HCPCS: 45385; 81025; 88305; J2704; J2765

== ENCOUNTER 2022-04-24 09:52 | Outpatient (CLI) | payer BC, SELFPAY ==
--- NOTE | 2022-04-24 08:49 | DI.MAMMO_ITS ---
Exam(s) MAMMO SCREENING EXAM: MAMMO SCREENING CLINICAL HISTORY: screening,z12.39 TECHNIQUE: Mammograms were interpreted according to the usual protocol including computer analysis w [employer] CAD system, tomosynthesis and C-view imaging. COMPARISON: 2016 through 2021 FINDINGS: The breasts are composed of heterogeneously dense fibroglandular densities, Breast Density category C . No suspicious masses or suspicious microcalcifications are seen. No skin thickening or abnormal axillary lymph nodes are seen. There has been no significant change from prior exams. IMPRESSION: BI-RADS Category 1, Negative mammogram. Yearly screening mammography is recommended. Breast Density Category C, heterogeneously Dense. The mammogram demonstrates the patient's breast tissue is dense. Dense breast tissue is very common a nd is not abnormal but dense breast tissue can make it harder to find cancer on a mammogram. Also, de nse breast tissue may increase breast cancer risk. This information about the result of the mammogram report was provided to the patient to raise their awareness. Use this report when you speak with the patient about their risks for breast cancer, which includes their family history. At that time, you may recommend additional screening tests (Ultrasound or MRI) as they might be useful based on their r isk. A negative radiographic report should not delay biopsy if a dominant or clinically suspicious mass is present. Up to ten percent of cancers are not identified on mammography. A negative report may reinforce clinical impression. Adenosis and dense breasts may obscure an underlying neoplasm. False positive reports average 6 to 10%.
== END 2022-04-24 10:12 ==
PROVIDERS: PCP Nurse Practitioner Family; Visit Provider Obstetrics & Gynecology Gynecology
DX: Z12.31 Encounter for screening mammogram for malignant neoplasm of breast (principal); R92.8 Other abnormal and inconclusive findings on diagnostic imaging of breast
CPT/HCPCS: 77063; 77067

== ENCOUNTER 2022-05-23 03:37 | Outpatient (CLI) | payer BC, SELFPAY ==
[2022-05-23 12:46] LABS: Anion Gap 7.5 mmol/L (3-11); BUN 14 mg/dL (7-18); CO2 28.5 mmol/L (21.0-32.0); CREATININE 0.8 mg/dL (0.55-1.02); Calcium 9.6 mg/dL (8.5-10.1); Calculated LDL 147 mg/dL (<100); Chloride 105 mmol/L (98-107); Cholesterol 206 mg/dL (<200); Glucose 99 mg/dL (74-106); HDL Cholesterol 43 mg/dL (40-60); Sodium 141 mmol/L (136-145); Triglyceride 84 mg/dL (<150)
== END 2022-05-23 03:38 | disposition home or self-care (01) ==
LOC: LOS 03:40
PROVIDERS: PCP Nurse Practitioner Family; Visit Provider Nurse Practitioner Family
DX: I10 Essential (primary) hypertension (principal); Z13.220 Encounter for screening for lipoid disorders; F41.8 Other specified anxiety disorders; E66.8 Other obesity
CPT/HCPCS: 36415; 80048; 80061

== ENCOUNTER 2022-09-22 00:56 | Inpatient (IN) | payer BC, SELFPAY ==
[2022-09-22] VITALS (22 sets, daily range): BP systolic 102–146; BP diastolic 55–90; PULSE 75–99; RESP 14–18; TEMP 36.5–37.7; O2SAT 94–99; BMI 42.3
--- NOTE | 2022-09-22 01:15 | DI.CT_ITS ---
Exam(s) CT ABDOMEN PELVIS W EXAM: CT ABDOMEN PELVIS W CLINICAL HISTORY: RLQ abd pain, nausea TECHNIQUE: Imaging Protocol: Axial computed tomography images with coronal and sagittal reformatted images were created and reviewed CONTRAST MATERIAL: Intravenous: Omnipaque 350 Contrast volume:100 mL Oral: No COMPARISON: No exams were available for comparison FINDINGS: ABDOMEN: Lung Bases: Normal where visualized. Liver: Normal density. No measurable mass. Portal, Superior Mesenteric, and Splenic Veins: Unremarkable. Gallbladder and Biliary Tract: No radiodense calculus or dilation. Pancreas: Normal density, no abnormal calcifications or inflammatory process. Spleen: Normal. Adrenals: No masses seen. Kidneys: Normal size, contour and axis. No radiodense stones or obstructive uropathy. No masses seen. Abdominal Aorta: Abdominal portion non-dilated. Bowel: No obstruction or bowel wall thickening. Appendix measures 1.1 cm in diameter. There is Paula appendiceal inflammation and wall enhancement. No abscess or free air. There is a focal hyperdensit y in the midportion of the appendix which may may represent an appendicolith. Peritoneal Cavity: There is a trace amount of free fluid in the pelvis. No free air. Lymph Nodes: Within normal limits. Bones: Within normal limits for the patient's age. Soft Tissues: There is a small hiatal hernia. PELVIS: Bladder: Symmetric distention, no gross wall thickening. Reproductive Organs: There is an IUD which is in good position. Lymph Nodes: Within normal limits. Bones: Within normal limits for the patient's age. IMPRESSION: Findings suggestive of acute appendicitis. No abscess or free air. RADIATION DOSE DELIVERED: 1,553.07mGy.cm Total DLP DATA REPOSITORY: All CT scans at this facility are submitted to the National Radiology Data Registry (NRDR) Dose Index Registry (DIR) with the [employer] (ACR). RADIATION OPTIMIZATION: All CT scans at this facility use at least one of these dose optimization te chniques: automated exposure control; mA and/or kV adjustment per patient size (includes targeted exa ms where dose is matched to clinical indication); or iterative reconstruction.
--- NOTE | 2022-09-22 01:19 | W.ED.GENAD ---
Discharge Plan Disposition Patient Disposition: Admit to [facility] Discharge Details Chief Complaint: Abd Prob Clinical Impression: Acute appendicitis Primary Care Provider: Ye Hill ED Provider: Melecio Barreto Home Meds and New Rx's Prescriptions: No Action multivitamin [Daily Multi-Vitamin] Tablet 1 tab PO DAILY Mirena 20 mcg/24 hours (7 yrs) 52 mg intrauterine device 1 device intrauterine ONCE Rx Instructions: as a single dose meclizine 12.5 mg tablet 12.5 mg PO PRN Qty: 10 0RF trazodone 50 mg tablet 50 mg PO QHS PRN (Reason: sleep) Qty: 5 0RF lorazepam 0.5 mg tablet 0.5 mg PO QHS PRN (Reason: anxiety) Qty: 5 0RF lisinopril 10 mg tablet 10 mg PO DAILY Qty: 90 4RF Medical Decision Making 42-year-old female presents with abdominal pain migrating from the umbilical region to the right lower quadrant. Associate with nausea no vomiting. Patient is hemodynamically stable afebrile nontoxic nonperitoneal. Consider appendicitis versus colitis versus constipation versus UTI versus ovarian cyst versus lower suspicion for ovarian torsion. Will obtain labs imaging analgesia antiemetics fluids close reassessment 2: 51 evidence of acute appendicitis on CT. Patient has been n.p.o. since yesterday. Zosyn has been started. Will start on maintenance fluids as needed pain and nausea medicines have been ordered. Discussed case with Dr. Maldonado of general surgery for admission HPI General Date/Time Provider Initiated Documentation: 09/22/22 01:08. HPI Narrative: 42-year-old female presents with periumbilical pain that is migrated to the right lower quadrant over the last several hours, discomfort and nausea began this morning, patient has baseline loose stool history of section in the past. Related Data Home Medications Medication Instructions Recorded Confirmed multivitamin (Daily Multi-Vitamin 1 tab PO DAILY 01/23/21 05/08/22 tablet) levonorgestrel 21 mcg/24 hours (8 1 device intrauterine ONCE 07/09/21 05/08/22 yrs) 52 mg intrauterine device (Mirena) lisinopril 10 mg tablet 10 mg PO DAILY #90 tabs 04/19/22 05/08/22 lorazepam 0.5 mg tablet 0.5 mg PO QHS PRN anxiety #5 tabs 04/19/22 05/08/22 meclizine 12.5 mg tablet 12.5 mg PO PRN #10 tabs 04/19/22 05/08/22 trazodone 50 mg tablet 50 mg PO QHS PRN sleep #5 tabs 04/19/22 05/08/22 Previous Rx's Medication Instructions Recorded lisinopril 10 mg tablet 10 mg PO DAILY #90 tabs 04/19/22 lorazepam 0.5 mg tablet 0.5 mg PO QHS PRN anxiety #5 tabs 04/19/22 meclizine 12.5 mg tablet 12.5 mg PO PRN #10 tabs 04/19/22 trazodone 50 mg tablet 50 mg PO QHS PRN sleep #5 tabs 04/19/22 Allergies Allergy/AdvReac Type Severity Reaction Status Date / Time doxycycline Allergy Mild Pt unsure Verified 05/08/22 08:28 of reaction erythromycin base AdvReac Intermediate upset Verified 05/08/22 08:28 stomach General Stated Complaint: Abd Prob JADEN: 3 Review of Systems Narrative: Review of Systems Constitutional: negative Eyes: negative ENT: negative Cardiovascular: negative Respiratory: negative Gastrointestinal: Abdominal pain, nausea : negative Musculoskeletal: negative Skin: negative Neurologic: negative Psych: negative PFSH All Active Problems (Updated 09/22/22 @ 02:53 by Melecio Barreto MD) Acute appendicitis (Acute) Family history of colon cancer (Chronic 04/12/13) mother with stage 3 Obesity (Chronic) Anxiety (Chronic) Hypertension (Chronic) Numbness (Acute) 09/12-left anterior thigh, intermittent Hyperplastic colon polyp (Acute) Medical History 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 Esophageal reflux Hypertension IUD (intrauterine device) in place IUD surveillance (02/01/11) most recent Mirena IUD inserted 06/2021. Lateral epicondylitis of right elbow Plantar fasciitis of right foot Vertigo Surgical History section (~2003) History of colonoscopy (~10/2021) Family History (Updated 05/08/22 @ 09:28 by Anaya Sommers MD) Mother Hepatitis C Essential hypertension Colon cancer Hypertension Father No problems noted. Sister Essential hypertension Hyperlipidemia Cancer Melanoma Maternal Grandfather Essential hypertension Hyperlipidemia Paternal Grandfather No problems noted. Maternal Grandmother Essential hypertension Hyperlipidemia Stroke Colon cancer Cancer Paternal Grandmother No problems noted. Daughter No problems noted. Social History (Updated 05/08/22 @ 09:26 by Anaya Sommers MD) Smoking/Tobacco Use Status: Never Second Hand Exposure: Yes Smoking risk assessment performed?: Yes Alcohol Intake: never Drug use: Never Substance use type: does not use Caregiver/Support person: No Household members: children and other Details: D-Kadienne. 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 H- . 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 Hobby-family [employer]. Pets and animals: Yes Pets and animals: cat(s) and dog(s) Sexually active: Yes Do you think of yourself as: straight/heterosexual Current gender identity: female What is your relationship status?: How often do you talk on the phone with friends or family?: three or more times per week How often do you get together with friends or relatives?: twice per week How often do you attend judaism or adventism services?: decline to answer Do you belong to any clubs or organized social groups?: decline to answer Panel score (0-1 are the most socially isolated patients): 2 Duration: 15-30 minutes/day Frequency: 1-2 times per week Geovanna/Congregational: None Special geovanna needs: No Seatbelt use: always Helmet use: Yes Helmet use: sometimes Drive intox or ride w/intox water taxi driver: No Do you feel safe at home: Yes Do you feel safe in your relationship?: Yes Female Reproductive History Menstrual control method: progestin IUCD Exam Narrative Exam Narrative: Physical Examination General: alert, awake, cooperative, resting comfortably, no acute distress HEENT: normocephalic, atraumatic; PERRL, EOM intact, conjunctiva normal; no nasal discharge; moist mucous membranes, oral and pharyngeal mucosa normal, tolerating secretions Neck: supple, trachea midline; full ROM Chest: normal to inspection Respiratory: normal respiratory effort, speaking in full sentences, clear to auscultation, no wheezing, rales or rhonchi Cardiac: regular rate, regular rhythm, S1S2 intact, no murmurs rubs or gallops GI: abdomen soft, non-tender, non-distended; no palpable mass or hepatosplenomegaly Skin: no lesions, rashes or trauma appreciated Neuro: AAOx3, normal speech, moving all extremities Psych: Appropriate mood and affect Course Vital Signs Vital signs: Vital Signs Temperature 36.8 C 09/22/22 01:08 Pulse 99 H 09/22/22 01:08 Respiratory Rate 18 09/22/22 01:08 Blood Pressure 146/90 H 09/22/22 01:08 Pulse Oximetry 99 09/22/22 01:08 Temperature 36.8 C 09/22/22 01:08 Temperature Source Oral 09/22/22 01:08 Pulse 99 H 09/22/22 01:08 Respiratory Rate 18 09/22/22 01:08 Respiratory Effort Normal, Non-Labored 09/22/22 01:10 Blood Pressure 146/90 H 09/22/22 01:08 Blood Pressure Position Sitting 09/22/22 01:08 Pulse Oximetry 99 09/22/22 01:08 Oxygen Delivery Method Room Air 09/22/22 01:08 Oxygen Flow Rate 0 09/22/22 01:08 Pain Level 8 09/22/22 01:08
[2022-09-22] MEDS: Ketorolac 15 MG/ML VIAL IVP (01:26)
[2022-09-22] MEDS: Normal Saline 1,000 ML 1000 ML IV (01:26)
[2022-09-22] MEDS: Ondansetron 4 MG/2 ML VIAL IVP (01:27)
[2022-09-22 01:28] LABS: Abs Immature Grans 0.06 10^3/uL (0.0-0.06); Absolute Basophil Count 0.07 10^3/uL (0.0-0.2); Absolute Eosinophil Count 0.04 10^3/uL (0.0-0.7); Absolute Lymphocyte Count 2.18 10^3/uL (1.2-3.4); Absolute Neutrophil Count 14.59 10^3/uL (1.2-6.7); Basophils % 0.4; Eosinophils % 0.2; HGB 13.3 g/dL (11.2-15.7); Immature Grans % 0.3; MCH 29.7 pg (27.0-33.0); MCHC 33.3 % (32.0-36.0); MCV 89 fL (80-95); MPV 9.7 fL (8.0-11.0); Monocytes % 6.7; Neutrophils % 80.4; Platelet Count 246 10^3/uL (130-400); RBC 4.48 10^6/uL (3.93-5.22); RDW 12.5 % (11.7-14.6); RDW-SD 40.8 fL; WBC 18.15 10^3/uL (4.4-10.8)
[2022-09-22 01:29] LABS: Absolute Monocyte Count 1.22 10^3/uL (0.1-0.8)
[2022-09-22 01:31] LABS: Bilirubin Small (Negative); Blood Trace-intact (Negative); Clarity Clear (Clear); Glucose Negative (Negative); Ketones 15 mg/dL (Negative); Leukocyte Esterase Negative (Negative); Nitrite Negative (Negative); Specific Gravity >= 1.030 (1.005-1.025); Urobilinogen 0.2 mg/dL (Up to 0.2); pH 5.5 (5-8)
[2022-09-22 01:32] LABS: Bacteria Rare HPF (Negative); C & S Indicated? No; Casts Negative LPF (Negative); Crystals Negative HPF (Negative); Epithelial Cells Rare HPF (Negative); Mucus Negative (Negative); WBC Negative HPF (0-5)
[2022-09-22 01:45] LABS: ALT 31 U/L (14-59); AST 17 U/L (15-37); Albumin 4.3 g/dL (3.4-5.0); Alkaline Phosphatase 77 U/L (46-116); Anion Gap 7.8 mmol/L (3-11); BUN 14 mg/dL (7-18); Bilirubin, Total 0.9 mg/dL (0.2-1.0); CO2 28.2 mmol/L (21.0-32.0); CREATININE 0.9 mg/dL (0.55-1.02); Calcium 9.6 mg/dL (8.5-10.1); Chloride 104 mmol/L (98-107); Estimated GFR 80.84 (mL/min/1.73m2); Glucose 111 mg/dL (74-106); Potassium 3.7 mmol/L (3.5-5.1); Sodium 140 mmol/L (136-145); Total Protein 7.9 g/dL (6.4-8.2)
[2022-09-22] MEDS: Omnipaque 350 MG/ML 100 ML BTL IJ (01:47)
[2022-09-22] MEDS: Normal Saline - Diluent 50 ML VIAL IV (01:48)
--- NOTE | 2022-09-22 02:36 | DI.VRAD_ITS ---
PROCEDURE INFORMATION: Exam: CT Abdomen And Pelvis With Contrast Exam date and time: 09/22/2022 1:46 AM Age: 42 years old Clinical indication: Abdominal pain; Generalized; Prior surgery; Surgery date: 6+ months; Surgery type: Caesarian TECHNIQUE: Imaging protocol: Computed tomography of the abdomen and pelvis with contrast. Contrast material: OMNIPAQUE 350; Contrast volume: 100 ml; Contrast route: INTRAVENOUS (IV); COMPARISON: No relevant prior studies available. FINDINGS: Liver: Unremarkable. No mass. Gallbladder and bile ducts: No calcified stones. No ductal dilation. Pancreas: Unremarkable. No ductal dilation. Spleen: Unremarkable. No splenomegaly. Adrenal glands: Normal. No mass. Kidneys and ureters: Unremarkable. No hydronephrosis. Stomach and bowel: Unremarkable. No obstruction. No mucosal thickening. Appendix: Thickened fluid-filled appendix with suggestion of a fecalith within proximal portion. Mild periappendiceal stranding. Overall findings worrisome for acute appendicitis. Intraperitoneal space: Trace pelvic fluid. Vasculature: No abdominal aortic aneurysm. Lymph nodes: No enlarged lymph nodes. Urinary bladder: Unremarkable as visualized. Reproductive: IUD in place. Bones/joints: Unremarkable. No acute fracture. Soft tissues: Unremarkable. IMPRESSION: Overall findings are worrisome for acute appendicitis. No perforation. THIS REPORT CONTAINS FINDINGS THAT MAY BE CRITICAL TO PATIENT CARE. The findings were verbally communicated via telephone conference with Melecio Barreto at 2:35 AM EDT on 09/22/2022. The findings were acknowledged and understood. Dictated and Authenticated by: Jose Schilling MD. Ordering:PGUADALUPE Majano MD
[2022-09-22] MEDS: PIPERACILLIN/TAZO 4.5 GM in Normal Saline 100 ML IVPB (03:00)
--- NOTE | 2022-09-22 07:36 | W.PREOPHP ---
Assessment and Plan Assessment and plan (1) Acute appendicitis: Status: Acute Assessment and plan: Molly is a pleasant 42-year-old female who comes in with acute appendicitis. Her exam, CT findings and labs are consistent with acute appendicitis. There is no evidence of rupture. I discussed the pathophysiology of acute appendicitis with the patient. We reviewed surgery. I went over the steps of laparoscopic surgery and the possibility of going open. We reviewed the reasons to have to go open. We went over the risks, benefits and complications. At the end of our conversation the patient had a good understanding of the complications and wished to proceed. Risks, benefits and complications have been reviewed. Complications include but are not limited to bleeding, infection, injury to adjacent bowel, abscess formation, staple line leak, inability to do the procedure laparoscopically and adverse reaction to the medications. Questions were entertained and answered to their satisfaction and they wished to proceed. No guarantees were given or implied. Proceed with laparoscopic appendectomy, possible open. (2) Family history of malignant hyperthermia: Status: Acute Assessment and plan: Anesthesia made aware of this family history. History of Present Illness Consults Consult date: 10/23/22 Requesting physician: Melecio Barreto Narrative: Mrs Esparza is a pleasant 42-year-old female who comes in late last night with right lower quadrant abdominal pain. She states that it started earlier in the day when they were driving back from an outing. She had quite a bit of discomfort while sitting in the car and going over bumps. When the pain continued to get worse she went to the emergency department. She denies any fevers at home. She denies any nausea or vomiting. No one else in the family was sick. Work-up in the emergency department showed an elevated white count. CT scan of the abdomen and pelvis which I reviewed this morning showed an dilated appendix with periappendiceal inflammation. Exam and labs and CT scan are consistent with acute appendicitis. No fluid around the appendix was noted so at this point does not look like it has ruptured. Her past medical history includes anxiety, hypertension. Of note her sister did have malignant hyperthermia. 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 Esophageal reflux IUD (intrauterine device) in place IUD surveillance (02/01/11) most recent Mirena IUD inserted 06/2021. Lateral epicondylitis of right elbow Plantar fasciitis of right foot Vertigo Surgical History section (~2003) History of colonoscopy (~10/2021) Family History Mother Hepatitis C Essential hypertension Colon cancer Hypertension Father No problems noted. Sister Essential hypertension Hyperlipidemia Cancer Melanoma Malignant hyperthermia Maternal Grandfather Essential hypertension Hyperlipidemia Paternal Grandfather No problems noted. Maternal Grandmother Essential hypertension Hyperlipidemia Stroke Colon cancer Cancer Paternal Grandmother No problems noted. Daughter No problems noted. Social History Smoking/Tobacco Use Status: Never Second Hand Exposure: Yes Smoking risk assessment performed?: Yes Alcohol Intake: never Drug use: Never Substance use type: does not use Caregiver/Support person: No Household members: children and other Details: D-Kadienne. Freshman at [employer]. H- . 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 Hobby-family races cars. Pets and animals: Yes Pets and animals: cat(s) and dog(s) Sexually active: Yes Do you think of yourself as: straight/heterosexual Current gender identity: female What is your relationship status?: How often do you talk on the phone with friends or family?: three or more times per week How often do you get together with friends or relatives?: twice per week How often do you attend samaritan or church services?: decline to answer Do you belong to any clubs or organized social groups?: decline to answer Panel score (0-1 are the most socially isolated patients): 2 Duration: 15-30 minutes/day Frequency: 1-2 times per week Geovanna/Hinduism: None Special geovanna needs: No Seatbelt use: always Helmet use: Yes Helmet use: sometimes Drive intox or ride w/intox bellman driver: No Do you feel safe at home: Yes Do you feel safe in your relationship?: Yes Female Reproductive History Menstrual control method: progestin IUCD Meds Allergies and Home Medications Allergies Allergy/AdvReac Type Severity Reaction Status Date / Time doxycycline Allergy Mild Pt unsure Verified 05/08/22 08:28 of reaction erythromycin base AdvReac Intermediate upset Verified 05/08/22 08:28 stomach Home Medications Medication Instructions Recorded Confirmed Type multivitamin (Daily Multi-Vitamin 1 tab PO DAILY 01/23/21 09/22/22 History tablet) levonorgestrel 21 mcg/24 hours (8 1 device intrauterine ONCE 07/09/21 09/22/22 History yrs) 52 mg intrauterine device (Mirena) lisinopril 10 mg tablet 10 mg PO DAILY #90 tabs 04/19/22 09/22/22 Rx lorazepam 0.5 mg tablet 0.5 mg PO QHS PRN anxiety #5 tabs 04/19/22 09/22/22 Rx meclizine 12.5 mg tablet 12.5 mg PO PRN #10 tabs 04/19/22 09/22/22 Rx trazodone 50 mg tablet 50 mg PO QHS PRN sleep #5 tabs 04/19/22 09/22/22 Rx Exam Const General: cooperative, comfortable and no acute distress Nutritional Appearance: overweight Orientation: alert and oriented x3 HENMT Head: normocephalic and atraumatic Resp Effort & Inspection: normal respiratory effort Auscultation: clear to auscultation bilaterally Cardio Rate: regular rate Rhythm: regular rhythm Heart Sounds: no gallops, murmur and no rubs GI Inspection: normal to inspection Palpation: soft, no hepatosplenomegaly and tender (RLQ, no rebound) Auscultation: normal bowel sounds Results Imaging Abdomen CT scan report/results: report reviewed and image reviewed CT scan - pelvis: report reviewed and image reviewed Labs 09/22/22 01:15 09/22/22 01:15 Labs: Laboratory Results - last 24 hr 09/22/22 09/22/22 09/22/22 01:15 01:15 01:15 WBC 18.15 H RBC 4.48 Hgb 13.3 Hct 40.0 MCV 89 MCH 29.7 MCHC 33.3 RDW 12.5 Plt Count 246 MPV 9.7 Immature Gran % 0.3 Neutrophils % 80.4 Lymphocytes % 12.0 Monocytes % 6.7 Eosinophils % 0.2 Basophils % 0.4 Nucleated RBC % 0.0 Absolute Neutrophils 14.59 H Absolute Lymphocytes 2.18 Absolute Monocytes 1.22 H Absolute Eosinophils 0.04 Absolute Basophils 0.07 Sodium 140 Potassium 3.7 Chloride 104 Carbon Dioxide 28.2 Anion Gap 7.8 BUN 14 Creatinine 0.9 Est GFR (CKD-EPI 2020) 80.84 Glucose 111 H Calcium 9.6 Total Bilirubin 0.9 AST 17 ALT 31 Alkaline Phosphatase 77 Total Protein 7.9 Albumin 4.3 Urine Color Yellow Urine Clarity Clear Urine pH 5.5 Ur Specific Z[place]ki >= 1.030 H Urine Protein Negative Urine Ketones 15 H Urine Blood Trace-intact H Urine Nitrite Negative Urine Bilirubin Small H Urine Urobilinogen 0.2 Ur Leukocyte Esterase Negative Urine RBC 3-5 H Urine WBC Negative Ur Epithelial Cells Rare Urine Crystals Negative Urine Bacteria Rare Urine Casts Negative Urine Mucus Negative Ur Culture Indicated? No Urine Glucose Negative Last Vital Signs Temp 99.9 F H 09/22/22 03:40 Pulse 88 09/22/22 03:40 Resp 14 09/22/22 03:40 BP 119/74 09/22/22 03:40 Pulse Ox 97 09/22/22 03:40
--- NOTE | 2022-09-22 07:50 | W.ANESPRE ---
General Info Date of Service Date Performed: 09/22/22 Height: 5 ft 7 in Weight: 122.7 kg Body Mass Index (BMI): 42.3 Meds Allergies and Home Medications Allergies Allergy/AdvReac Type Severity Reaction Status Date / Time doxycycline Allergy Mild Pt unsure Verified 05/08/22 08:28 of reaction erythromycin base AdvReac Intermediate upset Verified 05/08/22 08:28 stomach Home Medication Medication Instructions Recorded multivitamin (Daily Multi-Vitamin 1 tab PO DAILY 01/23/21 tablet) levonorgestrel 21 mcg/24 hours (8 1 device intrauterine ONCE 07/09/21 yrs) 52 mg intrauterine device (Mirena) lisinopril 10 mg tablet 10 mg PO DAILY #90 tabs 04/19/22 lorazepam 0.5 mg tablet 0.5 mg PO QHS PRN anxiety #5 tabs 04/19/22 meclizine 12.5 mg tablet 12.5 mg PO PRN #10 tabs 04/19/22 trazodone 50 mg tablet 50 mg PO QHS PRN sleep #5 tabs 04/19/22 Current Visit Medications: Current Medications Generic Name Dose Route Start Last Admin Trade Name Freq PRN Reason Stop Dose Admin Acetaminophen 650 mg 09/22/22 07:24 Acetaminophen 325 Mg Tab PO Q6H PRN PRN Pain Enoxaparin Sodium 40 mg 09/22/22 08:00 Enoxaparin 40 Mg/0.4 Ml Syr SC Q24H RHIANNA Ringer's Solution 1,000 mls @ 75 mls/hr 09/22/22 07:00 IV INFUSION RHIANNA Piperacillin Sod/Tazobactam 50 mls @ 100 mls/hr 09/22/22 08:00 Sod 3.375 gm/ Sodium Chloride IVPB Q6H RHIANNA Sodium Chloride 500 mls @ 0 mls/hr 09/22/22 07:24 Saline 500ml Bag IV PRN PRN As Directed Acetaminophen 1,000 mg in 100 mls @ 400 mls/hr 09/22/22 07:24 Ofirmev IVPB Q8H PRN PRN IV Miscellaneous Supplies 1 each 09/22/22 07:30 Iv Access IV DIRECTED RHIANNA Morphine Sulfate 2 mg 09/22/22 07:24 Morphine 2 Mg/Ml Syr IVP Q1H PRN PRN Ondansetron HCl 4 mg 09/22/22 02:49 Ondansetron 4 Mg/2 Ml Vial IVP Q4H PRN PRN Pantoprazole Sodium 40 mg 09/22/22 08:00 Pantoprazole 40 Mg Vial IVP Q24H RHIANNA Sodium Chloride 0 ml 09/22/22 02:44 Normal Saline Flush 10 Ml Syr IVP PRN PRN Tramadol HCl 50 mg 09/22/22 07:24 Tramadol 50 Mg Tab PO Q6H PRN PRN Pain PFSH Active Problems Active Problems: Problem Status Onset Code Family history of malignant hyperthermia Z84.89 Acute appendicitis K35.80 Family history of colon cancer 04/12/13 Z80.0 Obesity E66.9 Anxiety F41.9 Hypertension I10 Numbness R20.0 Hyperplastic colon polyp K63.5 Medical History Medical History 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 Esophageal reflux IUD (intrauterine device) in place IUD surveillance (02/01/11) most recent Mirena IUD inserted 06/2021. Lateral epicondylitis of right elbow Plantar fasciitis of right foot Vertigo Medical History Comments:: patient reports her sister had an anaphylactic reaction to a medication when receiving anesthesia here at [facility]. Neither the patient nor her sister know which medication caused the reaction however provided a list of the medications that were involved to include propofol, fentanyl, Versed, Decadron, Zofran and rocuronium. Patient is concerned that she has not been exposed to these medications in the past and is concerned for possible reaction as well. Task in [place] reviewed by by BB. Surgical History Surgical History section (~2003) History of colonoscopy (~10/2021) Tobacco Smoking/Tobacco Use Status: Never Passive smoking exposure: Yes Second hand exposure: Yes Alcohol Alcohol Intake: never Substance Use Substance use: Never Substance use type: does not use Vital Signs and Lab Results Vital Signs Most Recent Vital Signs in EMR: Most Recent Vital Signs Temp Pulse Resp BP Pulse Ox 37.0 C 82 14 116/64 97 09/22/22 07:44 09/22/22 07:42 09/22/22 03:40 09/22/22 07:42 09/22/22 03:40 Point of Care Results Point of Care Results: POC- Test(urine) Negative 09/22/22 01:24 Lab Results 09/22/22 07:52 09/22/22 01:15 Blood Type / Crossmatch: No Data to Display Complete Blood Count: White Blood Count 14.38 10^3/uL (4.4-10.8) H 09/22/22 07:52 Red Blood Count 4.26 10^6/uL (3.93-5.22) 09/22/22 07:52 Hemoglobin 13.0 g/dL (11.2-15.7) 09/22/22 07:52 Hematocrit 38.0 % (36.0-46.0) 09/22/22 07:52 Platelet Count 220 10^3/uL (130-400) 09/22/22 07:52 Complete Metabolic Panel: Sodium 140 mmol/L (136-145) 09/22/22 01:15 Potassium 3.7 mmol/L (3.5-5.1) 09/22/22 01:15 Chloride 104 mmol/L (98-107) 09/22/22 01:15 Carbon Dioxide 28.2 mmol/L (21.0-32.0) 09/22/22 01:15 BUN 14 mg/dL (7-18) 09/22/22 01:15 Creatinine 0.9 mg/dL (0.55-1.02) 09/22/22 01:15 Est GFR (CKD-EPI 2020) 80.84 (mL/min/1.73m2) 09/22/22 01:15 Calcium 9.6 mg/dL (8.5-10.1) 09/22/22 01:15 Albumin 4.3 g/dL (3.4-5.0) 09/22/22 01:15 Glucose 111 mg/dL (74-106) H 09/22/22 01:15 Liver Function Panel: Alanine Aminotransferase (ALT/SGPT) 31 U/L (14-59) 09/22/22 01:15 Aspartate Amino Transf (AST/SGOT) 17 U/L (15-37) 09/22/22 01:15 Coagulation Panel: No Data to Display Cardiac Panel: No Data to Display Arterial Blood Gas: No Data to Display Venous Blood Gas: No Data to Display Pancreas Panel: No Data to Display Thyroid Panel: No Data to Display Infectious Disease: No Data to Display Blood Cultures: No Data to Display Toxicology Panel: No Data to Display Panel: No Data to Display Anesthesia Assessment and Plan Anesthesia History Personal History: No History of Anesthesia Complications Family History: Malignant Hyperthermia Exercise Tolerance Exercise Tolerance: Metabolic Equivalents>4 Pertinent Negatives Pertinent Negatives: No Symptoms of GERD, No Major Cardiovascular Symptoms or Complaints, No Major Pulmonary Symptoms or Complaints and No History of CVA/TIA Cardiac & Pulmonary Exam Cardiac Exam: Normal S1/S2 Heart Sounds Pulmonary Exam: Clear Bilateral Breath Sounds Implantable Cardiac Device Does patient have a Pacemaker or an ICD?: No Airway Exam Known Difficult Airway: No Mallampati Class: 2 Mouth Opening: Normal (> 3cm) Thyromental Distance: Greater than 3 cm Neck Range of Motion: Full ROM Neck Circumference: Normal Teeth Condition: Normal Dentition ASA Classification ASA Score: ASA 3 Emergency Case?: Yes NPO Status NPO Status: NPO Clears >2 hours, Solids >8 hours Status Status: Negative HCG Anesthesia Plan Resuscitation Status: Full Code Anesthesia Technique: General Anesthesia Airway Planned: Endotracheal Tube Monitors Used: Standard Monitors Preoperative Comments:: familial history in sister. Initially questioned personal history of anaphylaxis to Rocuronium, not the case, after interviewing patient.
[2022-09-22] MEDS: Pantoprazole 40 MG VIAL IVP (07:52)
[2022-09-22] MEDS: Normal Saline Flush 10 ML SYR IVP (07:53)
[2022-09-22 08:07] LABS: Abs Immature Grans 0.04 10^3/uL (0.0-0.06); Absolute Basophil Count 0.04 10^3/uL (0.0-0.2); Absolute Lymphocyte Count 2.24 10^3/uL (1.2-3.4); Absolute Monocyte Count 0.85 10^3/uL (0.1-0.8); Basophils % 0.3; Immature Grans % 0.3; Lymphocytes % 15.6; MCH 30.5 pg (27.0-33.0); MCHC 34.2 % (32.0-36.0); MCV 89 fL (80-95); MPV 9.7 fL (8.0-11.0); Monocytes % 5.9; Neutrophils % 77.9; Platelet Count 220 10^3/uL (130-400); RBC 4.26 10^6/uL (3.93-5.22); RDW 12.5 % (11.7-14.6); RDW-SD 40.8 fL; WBC 14.38 10^3/uL (4.4-10.8)
--- NOTE | 2022-09-22 08:21 | INITIAL_ITS ---
Date of service: 09/22/22 Time of Service: 08:21 Care Management Initial Assmt Initial Assessment REASON FOR HOSPITALIZATION:: appendicitis PREVIOUS FUNCTIONAL STATUS/SOCIAL/FAMILY SUPPORTS:: Molly lives in a single family home in [place] with her boyfriend and 19 year old daughter. She works for [employer] and drives and is independent in the community. CURRENT FUNCTIONAL STATUS:: Molly was siting up in bed when CM met with her. She was pleasnat in interaction and engaged easily with CM. Molly stated that she hopes to be able to discharge later today. It is likely that she will if she can tolerate her diet. ADVANCE DIRECTIVES:: none on file Has patient been provided with info about the portal/API?: Yes Did the patient sign up for the portal?: Yes CODE STATUS:: Full Code INSURANCE COVERAGE / FINANCIAL ISSUES:: BC/BS out of state BC/BS [facility] Financial Assist 47 CURRENT HOME/COMMUNITY SERVICES/EQUIPMENT:: none PRIMARY CARE PHYSICIAN:: Ye Yung POTENTIAL DISCHARGE NEEDS:: follow up with surgeon and plan of care PATIENT/FAMILY EDUCATION NEEDS:: Review of discharge instructions, limitations, activity, follow up plan, discuss Ask Me Three TRANSPORTATION:: via private vehicle with family PLAN:: Molly will be discharged home with no new services. She will follow up with her PCP and plan of care and transport with family. 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 Esophageal reflux IUD (intrauterine device) in place IUD surveillance (02/01/11) most recent Mirena IUD inserted 06/2021. Lateral epicondylitis of right elbow Plantar fasciitis of right foot Vertigo Surgical History (Updated 09/22/22 @ 12:12 by Elmira Maldonado MD) section (~2003) History of colonoscopy (~10/2021) S/P laparoscopic appendectomy (~09/22/22) Family History Mother Hepatitis C Essential hypertension Colon cancer Hypertension Father No problems noted. Sister Essential hypertension Hyperlipidemia Cancer Melanoma Malignant hyperthermia Maternal Grandfather Essential hypertension Hyperlipidemia Paternal Grandfather No problems noted. Maternal Grandmother Essential hypertension Hyperlipidemia Stroke Colon cancer Cancer Paternal Grandmother No problems noted. Daughter No problems noted. Social History Smoking/Tobacco Use Status: Never Second Hand Exposure: Yes Smoking risk assessment performed?: Yes Alcohol Intake: never Drug use: Never Substance use type: does not use Caregiver/Support person: No Household members: children and other Details: D-Kadienne. 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 H- . 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 Pets and animals: Yes Pets and animals: cat(s) and dog(s) Sexually active: Yes Do you think of yourself as: straight/heterosexual Current gender identity: female What is your relationship status?: How often do you talk on the phone with friends or family?: three or more times per week How often do you get together with friends or relatives?: twice per week How often do you attend restoration or islam services?: decline to answer Do you belong to any clubs or organized social groups?: decline to answer Panel score (0-1 are the most socially isolated patients): 2 Duration: 15-30 minutes/day Frequency: 1-2 times per week Geovanna/Buddhism: None Special geovanna needs: No Seatbelt use: always Helmet use: Yes Helmet use: sometimes Drive intox or ride w/intox 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
[2022-09-22] MEDS: Lactated Ringers 1,000 ML 75 ML IV (09:01)
[2022-09-22] MEDS: PIPERACILLIN/TAZO 3.375 GM in Normal Saline 50 ML IVPB ×2 (09:24→14:02)
--- NOTE | 2022-09-22 09:39 | APP_PTH ---
PATIENT: Molly Esparza LOC: ICU U#:[id number] AGE/SX: 42/F ROOM: ICU.220 RE09/22/[address]: Elmira Maldonado MD : 1980 BED: A DIS: 09/22/2022 SPEC #: [id number] RECD: 09/26/22 11:58 STATUS: SOUT REQ #: [id number] LORY: 09/22/22 09:[address]: Elmira Maldonado DEPT: Surgical Specimen RECD BY: Lilliana Ventura ENTERED: 09/26/22 11:59 SP TYPE: Appendix OTHR DR: Ye Tucker, [facility] Anesthesia, Consult Tissues: 1 - APPENDIX NOT INCIDENTAL Procedures: GROSS AND MICRO LEVEL 3 Comments: [id number]
--- NOTE | 2022-09-22 10:42 | W.ANESPOSTOP ---
Postoperative Evaluation Date, Time and Location Date Performed: 09/22/22 Time Performed: 10:42 Patient Location: Intensive Care Unit Vital Signs Most Recent Imported Vital Signs: Most Recent Vital Signs Temp Pulse Resp BP Pulse Ox 37.0 C 79 14 104/55 L 94 09/22/22 07:44 09/22/22 10:31 09/22/22 03:40 09/22/22 10:31 09/22/22 10:31 Pain Score Most Recent Pain Score: Most Recent Pain Score Pain Level 4 09/22/22 07:44 Most recent assessment 0/10 Assessment Mental Status: Awake (Alert & Oriented to Patient Baseline) Airway and Respiratory Function: Patent airway with normal (patient baseline) respiratory exam Cardiovascular Function: Hemodynamically Stable Hydration Status: Adequately Hydrated Nausea & Vomiting: No Nausea or Vomiting Pain: Pt. Denies Any Pain Peripheral Nerve Block: Patient did not receive a nerve block
--- NOTE | 2022-09-22 11:01 | ROE_ITS ---
Date of service: 09/22/22 Time of Service: 10:00 Operative Note Operative Note DATE OF PROCEDURE: 09/22/22 PRE-OP DIAGNOSIS: acute appendicitis POST-OP DIAGNOSIS: same PROCEDURE: Laparoscopic Appendectomy SURGEON: Elmira Maldonado RN PROGRESSIVE CARE UNIT: [facility] ANESTHESIA TYPE: Local By Surgeon and General LMA/ETT Refer to Anesthesia Record ESTIMATED BLOOD LOSS: 25 PATHOLOGY: other (appendix) COMPLICATIONS: None Patient was transported to: PACU Patient's condition: stable Indications: Molly is a pleasant 42-year-old female who comes in with acute appendicitis.? Her exam, CT findings and labs are consistent with acute appendicitis.? There is no evidence of rupture.? I discussed the pathophysiology of acute appendicitis with the patient.? We reviewed surgery.? I went over the steps of laparoscopic surgery and the possibility of going open.? We reviewed the reasons to have to go open.? We went over the risks, benefits and complications.? At the end of our conversation the patient had a good understanding of the complications and wished to proceed.? Risks, benefits and complications have been reviewed. Complications include but are not limited to bleeding, infection, injury to adjacent bowel, abscess formation, staple line leak, inability to do the procedure laparoscopically and adverse reaction to the medications. Questions were entertained and answered to their satisfaction and they wished to proceed. No guarantees were given or implied. Findings: Inflamed appendix. NO inflammatory fluid Procedure Description: After informed consent was obtained the patient was taken to the operating room placed in the supine position, SCDs were applied as well as monitors. A timeout was done. The patient was then placed under general anesthesia and intubated without any difficulty. Next a Carpenter catheter was placed in a standard surgical fashion. At this point the abdomen was prepped and draped in a sterile surgical fashion with chlorhexidine. A second timeout was done and the patient's name, date of , operation to be performed, DVT prophylaxis, antibiotic given were reviewed. Fire risk was assessed. 0.25% Bupivocaine was injected into the dermis just below the umbilicus. A small 5 mm incision was made with an 11 blade. The subcutaneous tissue was bluntly dissected with hemostat. The skin was grasped with penetrating towel clamps on either side of the incision and then using a Visiport a 5 mm port was placed under direct visualization into the abdomen. The abdomen was insufflated. Local anesthetic was then injected just above the pubic symphysis just to the right of midline. A small 5 mm incision was made with an 11 blade and another 5 mm port was placed under direct visualization into the abdomen. The local anesthetic was then injected in the left lower quadrant area and a 12 mm incision was made with an 11 blade. A 12 mm port was then placed under direct visualization. The patient's bed was then turned to the left and head down allowing me to sweep of the small bowel out of the right lower quadrant. The cecum was gently grasped and the appendix was identified. The appendix looked inflammed and thickened at the tip. No purulent fluid was noted. The appendix was grasped at the neck and pulled up slightly allowing me to visualize the junction with the cecum. Using the laparoscopic LigaSure the mesoappendix was slowly transected. Using a laparoscopic straight stapler the appendix was then transected at the junction with the cecum. The appendix was placed into an Endo Catch bag and removed through the 12 mm port site. The port was placed back into the abdomen and the staple line was identified. No bleeding was noted. The transected mesentery was identified and no bleeding was noted. The 12 mm port site fascia was closed with a 0 Vicryl [id number]-uzdma suture using a carert-lema clusre device. The 2 5 mm ports were then removed under direct visualization and no bleeding was noted from the fascia. The insufflation was stopped and the 12 mm port was removed. The skin was then closed with 4-0 MOnocryl. The skin was cleaned and dried and Dermabond was applied. The patient was woken up, extubated and taken back to recovery room in stable condition. There were no immediate complications. Sponge, instrument and needle counts were correct at the end of the case x2.
--- NOTE | 2022-09-22 12:10 | W.PM.DS.N ---
Date of service: 09/22/22 Time of Service: 12:11 DS: Diagnosis Discharge Diagnosis (1) Acute appendicitis: Status: Acute Asessment and Plan: The patient is doing well post-op from their Laparoscopic appendectomy surgery.? They are having no nausea or vomiting. They are tolerating liquids and a snack. The pt is not having any chest pain or SOB.? Their pain is adequately controlled. They have been able to urinate.? ?HEENT:? no eye pain/drainage/redness/swelling. Mild sore throat ?Cardio- NSR, no chest pain, BP stable- see VS record ?Pulm: no sob or productive cough. No hemoptysis ?Incision- dressing is c/d/i w/ no excessive bleeding or drainage ?I discussed with the patient the findings at the time of surgery and the patient?s progress. ?We reviewed expectations at home; what the patient could expect for recovery time, and in the post-operative period.? We discussed the importance of walking to avoid blood clots and pneumonia.? We discussed and reviewed the patient's post-operative wound care and dressing needs.?? We reviewed their step-correa pain management plan, Rx called to the pharmacy of their choice.? We reviewed activity and limitations-see discharge instructions. We reviewed warning signs, and when to seek medical attention- see d/c instructions.?? Patient was given a postoperative follow-up appointment. Patient verbalized understanding of their postoperative instructions, how do to take care of themselves and their incision, and the pain management plan. Please see discharge instructions.? (2) Family history of malignant hyperthermia: Status: Acute Discharge Plan Disposition Patient Disposition: Home Condition: Stable Discharge Details Reason For Visit: appendicitis Admit Date/Time: 09/22/22 02:50 Admit Provider: Elmira Maldonado Attending Provider: Elmira Maldonado Primary Care Provider: [facility] Hospital Course Hospital Course: Molly is a pleasant 42 year old female who came in to the ER yesterday evening. She was diagnosed with acute appendicitis and taken to the OR today 09/22 at 9 am. She is 2 hours postoperative, and doing well. She has been able to urinate. She has tolerated fluids and her pain is well controlled on tylenol and ibuprofen. She doesn't want any Narcotic pain medications. I will D/c her to home. NO antibiotics needed. Home Meds and New Rx's Prescriptions: Continued multivitamin [Daily Multi-Vitamin] Tablet 1 tab PO DAILY Mirena 20 mcg/24 hours (7 yrs) 52 mg intrauterine device 1 device intrauterine ONCE Rx Instructions: as a single dose meclizine 12.5 mg tablet 12.5 mg PO PRN Qty: 10 0RF trazodone 50 mg tablet 50 mg PO QHS PRN (Reason: sleep) Qty: 5 0RF lorazepam 0.5 mg tablet 0.5 mg PO QHS PRN (Reason: anxiety) Qty: 5 0RF lisinopril 10 mg tablet 10 mg PO DAILY Qty: 90 4RF Discharge Instructions Instructions: Appendicitis (GEN), Laparoscopic Appendectomy (DC) Additional Instructions: Activity at Home after surgery: 1. Make sure you walk outside a few times per day 2. You should be able to climb a flight of stairs 3. No driving while in pain or taking pain medications 4. No strenuous activity or heavy lifting (no more then 5-10 lb) for 2 weeks (laparoscopic surgery) Diet, Nutrition, & wound healin. Avoid alcohol until after you are recovered from your surgery 2. Make sure to eat plenty of lean protein (meat, fish, eggs, cottage cheese, beans) 3. Eat a variety of fruits and vegetables. Eat plenty of high fiber foods to avoid constipation. 4. Drink plenty of liquids to stay hydrated and avoid constipation Pain Medications: 1. Tylenol 650mg every 6 hours as needed and Ibuprofen 600 mg every 6 hours as needed. You may alternate between the 2 medications every 3 hours For Constipation: 1. Take Milk of Magnesia or MiraLax as needed for constipation Other: 1. You may shower daily. Do not scrub the incisions 2. Do not soak the incisions for 1 week 3. You may alternate ice and heat as needed for pain and swelling Wound Care: 1. Keep the incisions clean and dry Please call our office if you develop: 1. Fevers >101.5 2. Nausea or Vomiting 3. Worsening pain 4. Redness and thick discharge from the wounds If after hours please call the Hospital at and ask to speak to the on-call surgeon Referrals: Christina Orr DO [OSTEOPATHIC DOCTOR] - 10/07/22 9:00 am Activity:: see above Equipment/Supplies:: No Equipment Needed Diet:: As Tolerated Discharge Orders Discharge Orders: Discharge Order (Routine); Ordered 09/22/22 Ordered By: Elmira Maldonado DS: Summary Time Spent with Patient providing and/or coordinating discharge services: Greater than 30 minutes Status at Discharge Functional status at discharge: independent ambulation Overall status at discharge: patient is back to baseline Mental Status: mental status grossly normal Speech and Movement: speech and movement normal Mood: congruent mood Affect: normal affect Exam Psych Mental Status: mental status grossly normal Speech and Movement: speech and movement normal Mood: congruent mood Affect: normal affect DS: Data Vitals/I&O Vitals and I&O: Vital Signs Temperature 97.7 F 09/22/22 10:29 Temperature Source Tympanic 09/22/22 10:29 Pulse 79 09/22/22 11:16 Pulse Rhythm Regular 09/22/22 07:45 Pulse 79 09/22/22 11:16 Respiratory Rate 14 09/22/22 03:40 Respiratory Effort Normal, Non-Labored 09/22/22 10:29 Respiratory Depth Normal 09/22/22 10:29 Respiratory Pattern Normal 09/22/22 10:29 Blood Pressure 111/70 09/22/22 11:16 Blood Pressure Mean 79 09/22/22 11:16 Blood Pressure Position Supine 09/22/22 10:29 Pulse Oximetry 99 09/22/22 11:16 Oxygen Delivery Method Nasal Cannula 09/22/22 11:15 Oxygen Flow Rate 3 09/22/22 11:15 Pain Level 0 09/22/22 10:29 Intake & Output 09/21/22 09/22/22 09/22/22 23:59 11:59 23:59 Intake Total 1850 / 1850 Output Total 350 / 350 Balance 1500 / 1500 Weight 270 lb 8.115 oz Intake: IV 1850 / 1850 Output: Urine 350 / 350 Other: Urine Color Yellow Urine Appearance Clear Urine Odor None Data Completed and Pending Labs on day of discharge: Labs from last 24 hours 09/22/22 09/22/22 09/22/22 07:52 01:15 01:15 WBC 14.38 H 18.15 H RBC 4.26 4.48 Hgb 13.0 13.3 Hct 38.0 40.0 MCV 89 89 MCH 30.5 29.7 MCHC 34.2 33.3 RDW 12.5 12.5 Plt Count 220 246 MPV 9.7 9.7 Immature Gran % 0.3 0.3 Neutrophils % 77.9 80.4 Lymphocytes % 15.6 12.0 Monocytes % 5.9 6.7 Eosinophils % 0.0 0.2 Basophils % 0.3 0.4 Nucleated RBC % 0.0 0.0 Absolute Neutrophils 11.20 H 14.59 H Absolute Lymphocytes 2.24 2.18 Absolute Monocytes 0.85 H 1.22 H Absolute Eosinophils 0.00 0.04 Absolute Basophils 0.04 0.07 Sodium Potassium Chloride Carbon Dioxide Anion Gap BUN Creatinine Est GFR (CKD-EPI 2020) Glucose Calcium Total Bilirubin AST ALT Alkaline Phosphatase Total Protein Albumin Urine Color Yellow Urine Clarity Clear Urine pH 5.5 Ur Specific [place] >= 1.030 H Urine Protein Negative Urine Ketones 15 H Urine Blood Trace-intact H Urine Nitrite Negative Urine Bilirubin Small H Urine Urobilinogen 0.2 Ur Leukocyte Esterase Negative Urine RBC 3-5 H Urine WBC Negative Ur Epithelial Cells Rare Urine Crystals Negative Urine Bacteria Rare Urine Casts Negative Urine Mucus Negative Ur Culture Indicated? No Urine Glucose Negative 09/22/22 01:15 WBC RBC Hgb Hct MCV MCH MCHC RDW Plt Count MPV Immature Gran % Neutrophils % Lymphocytes % Monocytes % Eosinophils % Basophils % Nucleated RBC % Absolute Neutrophils Absolute Lymphocytes Absolute Monocytes Absolute Eosinophils Absolute Basophils Sodium 140 Potassium 3.7 Chloride 104 Carbon Dioxide 28.2 Anion Gap 7.8 BUN 14 Creatinine 0.9 Est GFR (CKD-EPI 2020) 80.84 Glucose 111 H Calcium 9.6 Total Bilirubin 0.9 AST 17 ALT 31 Alkaline Phosphatase 77 Total Protein 7.9 Albumin 4.3 Urine Color Urine Clarity Urine pH Ur Specific [place] Urine Protein Urine Ketones Urine Blood Urine Nitrite Urine Bilirubin Urine Urobilinogen Ur Leukocyte Esterase Urine RBC Urine WBC Ur Epithelial Cells Urine Crystals Urine Bacteria Urine Casts Urine Mucus Ur Culture Indicated? 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 Esophageal reflux IUD (intrauterine device) in place IUD surveillance (02/01/11) most recent Mirena IUD inserted 06/2021. Lateral epicondylitis of right elbow Plantar fasciitis of right foot Vertigo Surgical History (Updated 09/22/22 @ 12:12 by Elmira Maldonado MD) section (~2003) History of colonoscopy (~10/2021) S/P laparoscopic appendectomy (~09/22/22) Family History Mother Hepatitis C Essential hypertension Colon cancer Hypertension Father No problems noted. Sister Essential hypertension Hyperlipidemia Cancer Melanoma Malignant hyperthermia Maternal Grandfather Essential hypertension Hyperlipidemia Paternal Grandfather No problems noted. Maternal Grandmother Essential hypertension Hyperlipidemia Stroke Colon cancer Cancer Paternal Grandmother No problems noted. Daughter No problems noted. Social History Smoking/Tobacco Use Status: Never Second Hand Exposure: Yes Smoking risk assessment performed?: Yes Alcohol Intake: never Drug use: Never Substance use type: does not use Caregiver/Support person: No Household members: children and other Details: D-Kadienne. 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 H- . 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 Hobby-family [employer]. Pets and animals: Yes Pets and animals: cat(s) and dog(s) Sexually active: Yes Do you think of yourself as: straight/heterosexual Current gender identity: female What is your relationship status?: How often do you talk on the phone with friends or family?: three or more times per week How often do you get together with friends or relatives?: twice per week How often do you attend confucianism or yazidism services?: decline to answer Do you belong to any clubs or organized social groups?: decline to answer Panel score (0-1 are the most socially isolated patients): 2 Duration: 15-30 minutes/day Frequency: 1-2 times per week Geovanna/Advent: None Special geovanna needs: No Seatbelt use: always Helmet use: Yes Helmet use: sometimes Drive intox or ride w/intox 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
[2022-09-22] MEDS: Enoxaparin 40 MG/0.4 ML SYR SC (12:31)
--- NOTE | 2022-09-22 16:46 | PDOC.CMDIS ---
Date of service: 09/22/22 Time of Service: 16:46 LACE Index Scoring Tool Questions: Length of Stay (in days): 1 Was the patient admitted via the E.D.?: Yes E.D. Visits: 1 Answers: Total Score: 5 Risk of Readmission: Low Risk Care Management Discharge Plan Reason for Hospitalization: appendicitis Discharge Plan: Molly will be discharged home with no new services. She will follow up with her PCP and plan of care and transport with family. Patient/Family Education Needs: Review of discharge instructions, limitations, activity, follow up plan, discuss Ask Me Three
== END 2022-09-22 14:40 | disposition home or self-care (01) | DRG 343 ==
LOC: ER 03:11 → ICU 03:13
PROVIDERS: Admitting Provider Surgery; Emergency Provider Emergency Medicine; PCP Nurse Practitioner Family; Visit Provider Surgery
PROC: 0DTJ4ZZ Resection of Appendix, Percutaneous Endoscopic Approach (ICD-10-PCS; CPT 44970; principal; 2022-09-22 08:05)
DX: K35.80 Unspecified acute appendicitis (principal); I10 Essential (primary) hypertension; F41.9 Anxiety disorder, unspecified; Z84.89 Family history of other specified conditions
CPT/HCPCS: 44970; 36415; 80053; 96374; 96375; 96376; 99285; J1650; 74177; 81003; 81015; 85025; 88304; J0131; J0171; J1100; J1885; J2001; J2250; J2405; J2543; J3490

== ENCOUNTER 2023-02-18 11:32 | Outpatient (CLI) | payer BC, SELFPAY ==
--- NOTE | 2023-02-18 11:00 | DI.RAD_ITS ---
Exam(s) XR SHOULDER LT COMPLETE 2+V EXAM: XR SHOULDER LT COMPLETE 2+V CLINICAL HISTORY: left shoulder pain. TECHNIQUE: 2D digital imaging was performed. COMPARISON: No exams were available for comparison FINDINGS: Two views. No evidence fracture nor dislocation. Subacromial space is not diminished. No calcifications seen i n the subacromial space but there is a 1.3 x 0.7 cm calcification seen intimately associated with the posterior aspect of the humeral head. This is either within or interposed between the infraspinatus tendon and the posterior humeral head. Less likely representing a fracture fragment no other intra- articular calcifications seen. There are minimal degenerative changes in the glenohumeral joint and AC joint. No lytic osseous lesi ons. IMPRESSION: Posteriorly located 13 x 7 mm calcification as described above. If clinically indicated this can be best located with CT or MRI. DATA REPOSITORY: RADIATION DOSE DELIVERED:
== END 2023-02-18 11:33 | disposition home or self-care (01) ==
LOC: DIORS 11:33
PROVIDERS: PCP Nurse Practitioner Family; Visit Provider Student in an Organized Health Care Education/Training Program
DX: M25.512 Pain in left shoulder (principal)
CPT/HCPCS: 73030

== ENCOUNTER → 2023-03-18 10:01 | Outpatient (CLI) | payer BC, SELFPAY ==
--- NOTE | 2023-03-18 09:15 | DI.MRI_ITS ---
Exam(s) MR UPPER JOINT LT WO EXAM: MR UPPER JOINT LT WO CLINICAL HISTORY: ? SLAP TEAR, M67.922 disorder of synovium and tendon lt upper arm,. TECHNIQUE: Multiplanar multisequence MRI was performed. COMPARISON: None. FINDINGS: BONES: There is no fracture or contusion pattern. JOINTS:The acromioclavicular joint is normal. The glenohumeral joint is normal. TENDONS: Supraspinatus: Unremarkable. Infraspinatus: Focal calcification seen within distal infraspinatus tendon, corresponding to the calc ification seen on plain film. No abnormal signal within or around the tendon. Subscapularis: Unremarkable. Teres Minor: Unremarkable. Biceps and Sargents: Unremarkable. MUSCLES: Unremarkable. GLENOID LABRUM: Unremarkable on this noncontrast examination. SOFT TISSUES: Unremarkable. OTHER: Subacromial and subdeltoid bursae shows trace fluid.. Minimal amount of fluid within subcoracoid bursa. IMPRESSION: Calcification within distal infraspinatus tendon. No abnormal signal within or surrounding the tendo n. DATA REPOSITORY:
== END ==
PROVIDERS: PCP Nurse Practitioner Family; Visit Provider Student in an Organized Health Care Education/Training Program
DX: M75.32 Calcific tendinitis of left shoulder
CPT/HCPCS: 73221

== ENCOUNTER 2023-05-22 07:33 | Day surgery (SDC) | payer BC, SELFPAY ==
--- NOTE | 2023-05-22 07:10 | W.PM.DSUDISC ---
Date of service: 05/22/23 Time of Service: 13:00 Discharge Plan Disposition Patient Disposition: Home Condition: Serious Discharge Details Attending Provider: Freddy Herrera Primary Care Provider: Tish Remy Home Meds and New Rx's Prescriptions: New naproxen 250 mg tablet 250 - 500 mg PO BID PRN (Reason: Moderate pain) Qty: 40 0RF oxycodone 5 mg tablet 5 - 10 mg PO Q4H PRN (Reason: Moderate to severe pain) Qty: 18 0RF Continued multivitamin [Daily Multi-Vitamin] Tablet 1 tab PO DAILY lisinopril 10 mg tablet 10 mg PO DAILY Qty: 90 3RF Mirena 20 mcg/24 hours (7 yrs) 52 mg intrauterine device 1 device intrauterine ONCE Rx Instructions: as a single dose Discharge Instructions Additional Instructions: Surgery: Left shoulder manipulation under anesthesia Activity: Encourage increasing range of motion. Perform daily stretching exercises. Resume physical therapy tomorrow. Prescriptions: Naproxen 250 mg take 1-2 every 12 hours with a meal as needed for moderate pain Oxycodone 5 mg take 1-2 every 4-6 hours as needed for severe pain You may use ilod-trb-elcwwyd Tylenol (acetaminophen) as needed for mild pain. These pain medications may be taken all at once or in different combinations as needed. Also, recommend Colace (docusate) as a stool softener as surgery and pain medicine cause constipation. You may try papr-djl-zhqicnu diphenhydramine (Benadryl) 25-50 mg nightly as a sleep aid Dressings: None Follow-up: 10-[address] Herrera You may take off the leg compression stockings this evening at home. You may also leave them on a few days longer if you have a history of leg swelling or edema. Let us know right away if you develop any redness, drainage, fevers, chest pain, or trouble breathing. Do not drink alcohol or drive for at least 24 hours after anesthesia. Please call the office during business hours with any questions or concerns. Discharge Orders Discharge Orders: Discharge Order (Routine); Ordered 05/22/23 Ordered By: Garrick Quintanilla DS: Diagnosis Discharge Diagnosis (1) Adhesive capsulitis of left shoulder: Status: Chronic
--- NOTE | 2023-05-22 07:37 | W.PM.OP ---
Date of service: 05/22/23 Time of Service: 11:30 Operative Note Operative Note DATE OF PROCEDURE: 05/22/23 PRE-OP DIAGNOSIS: Left shoulder stiffness PROCEDURE: Left shoulder manipulation under anesthesia, CPT #64469 SURGEON: Freddy Herrera ANESTHESIA TYPE: General LMA/ETT and Primary Nerve Block Refer to Anesthesia Record ESTIMATED BLOOD LOSS: 0 COMPLICATIONS: None Patient was transported to: same day Patient's condition: stable Indications: Please see complete medical record for details. Findings: Excellent release of adhesions in all directions, no instability Procedure Description: In the operating room, general anesthesia was induced. The patient was positioned supine on the stretcher. Preoperative antibiotics were omitted. The correct patient, procedure, and side of the procedure were all verified prior to beginning. The Left shoulder was examined with range of motion about 95 degrees forward elevation and 15 degrees external rotation. Internal rotation at about 90 degrees 45 degrees, abduction about 90 degrees. These endpoints had relatively firm, stiff feel. A short lever arm and gradual to steady gentle pressure was used to perform the manipulation alternating between external rotation at the side, forward elevation, and abduction with internal and external rotation. Deliberately gradually and carefully excellent releases were felt in forward elevation and external rotation, followed by cross body adduction, forward elevation external rotation confirmed again. Less release needed in abduction and internal rotation. Range of motion was then tested and full. All endpoints were gently exaggerated. The shoulder joint remained stable. While the patient remained under anesthesia, all directions were stretched and repeated numerous times. The patient awoke from anesthesia without complication and was transferred to the recovery room in a stable condition.
[2023-05-22 08:50] VITALS: BP 145/93; PULSE 89; RESP 18; TEMP 36.7; O2SAT 100
[2023-05-22] MEDS: Lactated Ringers 1,000 ML 30 ML IV (08:50)
--- NOTE | 2023-05-22 09:45 | W.ANESPRE ---
General Info Date of Service Date Performed: 05/22/23 Height: 5 ft 7 in Weight: 121.7 kg Body Mass Index (BMI): 42.0 Surgical Procedure: Operation Date: 05/22/23 10:40 Proposed Procedure Side Surgeon p Shoulder Manipulation Left Freddy Herrera MD Meds Allergies and Home Medications Allergies Allergy/AdvReac Type Severity Reaction Status Date / Time doxycycline Allergy Mild Pt unsure Verified 05/22/23 08:55 of reaction erythromycin base AdvReac Intermediate upset Verified 05/22/23 08:55 stomach Home Medication Medication Instructions Recorded multivitamin (Daily Multi-Vitamin 1 tab PO DAILY 01/23/21 tablet) levonorgestrel 21 mcg/24 hours (8 1 device intrauterine ONCE 07/09/21 yrs) 52 mg intrauterine device (Mirena) lisinopril 10 mg tablet 10 mg PO DAILY #90 tabs 05/08/23 naproxen 250 mg tablet 250 - 500 mg (1 - 2 x 250 mg) PO 05/22/23 BID PRN Moderate pain #40 tabs oxycodone 5 mg tablet 5 - 10 mg (1 - 2 x 5 mg) PO Q4H 05/22/23 PRN Moderate to severe pain #18 tabs Current Visit Medications: Current Medications Generic Name Dose Route Start Last Admin Trade Name Freq PRN Reason Stop Dose Admin Ringer's Solution 1,000 mls @ 30 mls/hr 05/22/23 06:00 05/22/23 08:50 IV 06/20/23 23:59 30 mls/hr INFUSION RHIANNA Administration IV Miscellaneous Supplies 1 each 05/22/23 06:00 Iv Access IV 06/20/23 23:59 DIRECTED RHIANNA Oxycodone HCl 0 mg 05/22/23 07:10 Oxycodone 5 Mg Tab PO 06/21/23 07:09 Q3H PRN PRN Pain Sodium Chloride 0 ml 05/22/23 06:00 Normal Saline Flush 10 Ml Syr IV 06/20/23 23:59 PRN PRN Sodium Chloride 0 ml 05/22/23 06:00 Normal Saline 10 Ml Vial IJ 06/20/23 23:59 DIRECTED PRN Sterile Water 0 ml 05/22/23 06:00 Water,Injection,Sterile 10 Ml Vial IJ 06/20/23 23:59 DIRECTED PRN PFSH Active Problems Active Problems: Problem Status Onset Code Hypertension I10 GERD (gastroesophageal reflux disease) K21.9 IUD surveillance Z30.431 Generalized anxiety disorder F41.1 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 Neither the patient nor her sister know which medication caused the reaction however provided a list of the medications that were involved to include propofol, fentanyl, Versed, Decadron, Zofran and rocuronium. Patient is concerned that she has not been exposed to these medications in the past and is concerned for possible reaction as well. Task in [employer] reviewed by by BB. Surgical History Surgical History History of section (05/15/03) S/P laparoscopic appendectomy (09/22/22) History of colonoscopy (10/25/21) Tobacco Smoking/Tobacco Use Status: Never Passive smoking exposure: Yes Second hand exposure: Yes Alcohol Alcohol Intake: never Substance Use Substance use: Never Substance use type: does not use Vital Signs and Lab Results Vital Signs Most Recent Vital Signs in EMR: Most Recent Vital Signs Temp Pulse Resp BP Pulse Ox 36.7 C 89 18 145/93 H 100 05/22/23 08:50 05/22/23 08:50 05/22/23 08:50 05/22/23 08:50 05/22/23 08:50 Lab Results Blood Type / Crossmatch: No Data to Display Complete Blood Count: No Data to Display Complete Metabolic Panel: No Data to Display Liver Function Panel: No Data to Display Coagulation Panel: No Data to Display Cardiac Panel: No Data to Display Arterial Blood Gas: No Data to Display Venous Blood Gas: No Data to Display Pancreas Panel: No Data to Display Thyroid Panel: No Data to Display Infectious Disease: No Data to Display Blood Cultures: No Data to Display Toxicology Panel: No Data to Display Panel: No Data to Display Anesthesia Assessment and Plan Anesthesia History Personal History: No History of Anesthesia Complications Family History: Malignant Hyperthermia Exercise Tolerance Exercise Tolerance: Metabolic Equivalents>4 Pertinent Negatives Pertinent Negatives: No Symptoms of GERD, No Major Cardiovascular Symptoms or Complaints, No Major Pulmonary Symptoms or Complaints and No History of CVA/TIA Cardiac & Pulmonary Exam Cardiac Exam: Normal S1/S2 Heart Sounds Pulmonary Exam: Clear Bilateral Breath Sounds Implantable Cardiac Device Does patient have a Pacemaker or an ICD?: No Airway Exam Known Difficult Airway: No Mallampati Class: 2 Mouth Opening: Normal (> 3cm) Thyromental Distance: Greater than 3 cm Neck Range of Motion: Full ROM Neck Circumference: Normal Teeth Condition: Normal Dentition ASA Classification ASA Score: ASA 3 Emergency Case?: No NPO Status NPO Status: NPO Clears >2 hours, Solids >8 hours Status Status: Negative HCG Anesthesia Plan Resuscitation Status: Full Code Anesthesia Technique: General Anesthesia Airway Planned: Natural Airway Pain Management: Surgeon and patient request nerve block Monitors Used: Standard Monitors
[2023-05-22 09:46] VITALS: BMI 42.0
[2023-05-22 11:10] VITALS: BP 118/64; PULSE 95; RESP 20; TEMP 37; O2SAT 97
[2023-05-22 11:44] VITALS: BP 119/67; PULSE 85; RESP 18; TEMP 36.6; O2SAT 97
[2023-05-22 12:16] VITALS: BP 130/76; PULSE 84; RESP 18; TEMP 36.7; O2SAT 99
--- NOTE | 2023-05-22 12:21 | W.ANESPOSTOP ---
Postoperative Evaluation Date, Time and Location Date Performed: 05/22/23 Time Performed: 12:21 Patient Location: Day Surgery Unit Vital Signs Most Recent Imported Vital Signs: Most Recent Vital Signs Temp Pulse Resp BP Pulse Ox 36.6 C 85 18 119/67 97 05/22/23 11:44 05/22/23 11:44 05/22/23 11:44 05/22/23 11:44 05/22/23 11:44 Pain Score Most Recent Pain Score: Most Recent Pain Score Pain Level 0 05/22/23 11:44 Assessment Mental Status: Awake (Alert & Oriented to Patient Baseline) Airway and Respiratory Function: Patent airway with normal (patient baseline) respiratory exam Cardiovascular Function: Hemodynamically Stable Hydration Status: Adequately Hydrated Nausea & Vomiting: No Nausea or Vomiting Pain: Pt. Denies Any Pain Peripheral Nerve Block: Patient did not receive a nerve block
--- NOTE | 2023-05-22 12:45 | W.ANESNERVE ---
Nerve Block Single Injection Procedure Date and Time Date Performed: 05/22/23 Procedure Start: 11:11 Location Where Procedure Performed Procedure Location: Day Surgery Unit Reason Performed: Postoperative Analgesia Requesting Provider: Freddy Herrera Timeout Performed Timeout Performed: Yes Monitoring Used ECG, Blood Pressure and SpO2 Sterility Sterility: Hand Hygiene, Surgical Cap, Surgical Mask, Sterile Gloves and Chlorhexidine Sedation Given During Procedure Sedation Given (Indicate Dose Given): Versed IV Dose:: 2 mg Patient Mental Status Patient Mental Status: Sedate with meaningful communication Nerve Block 1st Nerve Block: Laterality: Left Block Type: Interscalene Ultrasound Image Saved?: Yes Needle / Catheter Used: 100mm SonoPlex II Local Anesthetic Bolus (Indicate Dose Given): Lidocaine used for local infiltration of skin, Injected in 3-5ml increments after negative blood aspiration, Bupivacaine 0.5% Dose:: 10 ml and Exparel Dose:: 10 ml Additives (Indicate Dose Given): None Ultrasound: Sterile probe cover and gel used Nerve Stimulator: Supplement to Ultrasound use and No twitch or parasthesia noted < 0.5 mA Paresthesia: None Procedure Tolerated: No Complications and Patient tolerated well Procedure Outcome: Successful Performed By: Koffi Jarrett
--- NOTE | 2023-05-28 15:40 | PDOC.ANES ---
Date of service: 05/28/23 Time of Service: 15:40 Anesthesia Note Report Anesthesia Note: Request made this morning for an Anesthesia provider to call Molly due to a lump around nerve block site. I attempted this morning at 0933 and no answer and went to [facility]. I attempted again this afternoon and was able to connect with Molly, she reports that she saw Tish, I believe the patient's PT, who stated they believe it was muscular in origin and due to a rigorous PT session the other day. Patient reports full resolution of block on Thursday 05/25, with complete return of motor and sensory, reported it was a gradual return. All questions answered and did refer Molly to Dr. Herrera's office if any further questions were to arise.
== END 2023-05-22 12:43 | disposition home or self-care (01) ==
LOC: SUR 07:33
PROVIDERS: PCP Nurse Practitioner Family; Visit Provider Student in an Organized Health Care Education/Training Program
PROC: (CPT 23700; principal; 2023-05-22 10:30)
DX: M75.02 Adhesive capsulitis of left shoulder (principal); I10 Essential (primary) hypertension
CPT/HCPCS: 23700; 76942; 81025; C9290; J0665; J2250; J2704

== ENCOUNTER 2023-05-30 01:13 | Outpatient (CLI) | payer BC, SELFPAY ==
[2023-05-30 12:16] LABS: Hemoglobin A1C 5.2 % (<5.7)
[2023-05-30 12:21] LABS: BUN 12 mg/dL (7-18); CREATININE 0.9 mg/dL (0.55-1.02); Calcium 9.4 mg/dL (8.5-10.1); Calculated LDL 134 mg/dL (<100); Chloride 104 mmol/L (98-107); Cholesterol 192 mg/dL (<200); Estimated GFR 80.84 (mL/min/1.73m2); Glucose 96 mg/dL (74-106); HDL Cholesterol 41 mg/dL (40-60); Potassium 4.2 mmol/L (3.5-5.1); Sodium 141 mmol/L (136-145); Triglyceride 89 mg/dL (<150)
== END 2023-05-30 01:14 | disposition home or self-care (01) ==
LOC: LOS 01:14
PROVIDERS: PCP Nurse Practitioner Family; Visit Provider Nurse Practitioner Family
DX: Z00.00 Encounter for general adult medical examination without abnormal findings (principal); Z13.220 Encounter for screening for lipoid disorders; Z13.1 Encounter for screening for diabetes mellitus; Z13.228 Encounter for screening for other metabolic disorders
CPT/HCPCS: 36415; 80048; 80061; 83036

== ENCOUNTER → 2023-06-04 03:16 | Outpatient (CLI) | payer BC, SELFPAY ==
--- NOTE | 2023-06-04 06:45 | DI.MAMMO_ITS ---
Exam(s) MAMMO SCREENING EXAM: MAMMO SCREENING CLINICAL HISTORY: screening,z12.39 TECHNIQUE: Bilateral full field digital CC and MLO mammographic images were obtained with 3D tomosyn thesis and utilizing computer aided detection (CAD). COMPARISON: Available for comparison. FINDINGS: Masses/Architectural Distortion: Stable right breast nodules. No new nodules. No areas of senior sharepoint architect ural distortion. Microcalcifications: No suspicious pleomorphic-type are seen. Skin Thickening/Nipple Retraction: None. IMPRESSION: 1. No significant interval change with no specific features of malignancy noted. 2. Unless there is more urgent need, screening mammography is recommended, as per [place] [employer] guidelines. BI-RADS Category 2 - Benign Findings Breast Density - Category C - Heterogeneously dense Breast density category C or D implies that the patient has dense breast tissue. Dense breast tissue is very common and is not abnormal but dense breast tissue can make it harder to find cancer on a ma mmogram. Also, dense breast tissue may increase their breast cancer risk. This information about the result of the mammogram report was provided to the patient to raise their awareness. Use this report when you speak with the patient about their risks for breast cancer, which includes their family hist ory. At that time, you may recommend for more screening tests (Ultrasound or MRI) as they might be us eful based on their risk. A negative radiographic report should not delay biopsy if a dominant or clinically suspicious mass is present. Up to ten percent of cancers are not identified on mammography. A negative report may reinforce clinical impression. Adenosis and dense breasts may obscure an underlying neoplasm. False positive reports average 6 to 10%. Patient will receive a letter notifying them of these results.
== END ==
PROVIDERS: PCP Nurse Practitioner Family; Visit Provider Nurse Practitioner Family
DX: Z12.31 Encounter for screening mammogram for malignant neoplasm of breast (principal)
CPT/HCPCS: 77063; 77067

== ENCOUNTER 2023-06-17 12:01 | Outpatient (REF) | payer BC, SELFPAY ==
--- NOTE | 2023-06-17 11:45 | PAPFT_PTH ---
PATIENT: Molly Esparza LOC: [facility] U#:[id number] AGE/SX: 42/F ROOM: RE06/17/[address]: Anaya Sommers : 1980 BED: DIS: 06/17/2023 SPEC #: [id number] RECD: 06/17/23 12:54 STATUS: RUMA GAMINO #: [id number] LORY: 06/17/23 11:[address]: Anaya Sommers DEPT: [facility] Cytology RECD BY: Lilliana Ventura ENTERED: 06/17/23 12:55 SP TYPE: PAPFT OTHR DR: Tish Remy, QM CONSULTANT Tissues: 1 - CX/ENDOCX FOR PAP SMEARS Procedures: PAP THIN PREP/UVM Screening HPV DNA PROBE Comments: [id number]
== END 2023-06-17 12:02 | disposition home or self-care (01) ==
LOC: LBN 12:01
PROVIDERS: PCP Nurse Practitioner Family; Visit Provider Obstetrics & Gynecology Gynecology
DX: Z12.4 Encounter for screening for malignant neoplasm of cervix (principal); Z11.51 Encounter for screening for human papillomavirus (HPV)
CPT/HCPCS: 88142; 87624

== ENCOUNTER 2024-06-18 00:47 | Outpatient (CLI) | payer BC, SELFPAY ==
--- NOTE | 2024-06-18 10:04 | DI.MAMMO_ITS ---
Exam(s) MAMMO SCREENING EXAM: MAMMO SCREENING CLINICAL HISTORY: screening,z12.39. TECHNIQUE: Bilateral full field digital CC and MLO mammographic images were obtained with 3D tomosyn thesis and utilizing computer aided detection (CAD). COMPARISON: Prior mammograms dating back to 2017 were reviewed. FINDINGS: There has been no significant change in the appearance and distribution of the fibroglandular tissue. A round nodular density in the immediate retroareolar region the right breast is unchanged from 2017 therefore benign. A laterally located nodule in the right breast is also unchanged 2017 and therefore benign. There are no new spiculated masses nor new malignant appearing microcalcification groups in either br east. There is no significant architectural distortion nor skin thickening-retraction. IMPRESSION: Stable benign findings. No radiographic evidence of malignancy. BI-RADS Category 2 - Benign Findings Breast Density - Category B - Scattered areas of fibroglandular density Breast density Category C or D implies that the patient has dense breast tissue. Dense breast tissue can make it harder to find cancer on a mammogram. Dense breast tissue is also associated with an incr eased risk of breast cancer. This information about the result of the mammogram report was provided to the patient to raise their awareness. Use this report when you speak with the patient about their risks for breast cancer, which includes their family history. At that time, you may recommend additional screening tests (Ultrasoun d or MRI) as these tests may add significant information. A negative radiographic report should not delay biopsy if a dominant or clinically suspicious mass is present. Up to ten percent of cancers are not identified on mammography. A negative report may reinforce clinical impression. Adenosis and dense breasts may obscure an underlying neoplasm. False positive reports average 6 to 10%. Patient will receive a letter notifying them of these results.
== END 2024-06-18 01:07 ==
LOC: DI 00:48
PROVIDERS: PCP Nurse Practitioner Family; Visit Provider Nurse Practitioner Family
DX: Z12.31 Encounter for screening mammogram for malignant neoplasm of breast (principal); R92.323 Mammographic fibroglandular density, bilateral breasts; D24.1 Benign neoplasm of right breast
CPT/HCPCS: 77063; 77067

== ENCOUNTER 2024-06-18 08:57 | Outpatient (CLI) | payer BC, SELFPAY ==
[2024-06-18 10:16] LABS: Anion Gap 8.1 mmol/L (3-11); BUN 10 mg/dL (7-18); CO2 28.9 mmol/L (21.0-32.0); CREATININE 0.7 mg/dL (0.55-1.02); Calcium 9.1 mg/dL (8.5-10.1); Chloride 106 mmol/L (98-107); Estimated GFR 108.62 (mL/min/1.73m2); Glucose 93 mg/dL (74-106); Potassium 4.3 mmol/L (3.5-5.1); Sodium 143 mmol/L (136-145)
[2024-06-20 09:28] LABS: HIV-1/2 Ag & Ab Screen Negative (Negative)
[2024-06-21 11:41] LABS: Hepatitis C Ab w Rflx HCV PCR Negative (Negative)
[2024-06-21 11:47] LABS: HBs Antibody, Quant <3.1 mIU/mL (See Note); Hep B Surface Ab Negative (See Note); Hepatitis B Core Antibody Negative (Negative); Hepatitis B Surface Antigen Negative (Negative)
== END 2024-06-18 08:58 | disposition home or self-care (01) ==
LOC: LBO 08:57
PROVIDERS: PCP Nurse Practitioner Family; Visit Provider Nurse Practitioner Family
DX: Z11.4 Encounter for screening for human immunodeficiency virus [HIV] (principal); Z11.59 Encounter for screening for other viral diseases; I10 Essential (primary) hypertension
CPT/HCPCS: 36415; 80048; 86704; 86706; 86803; 87340; 87389